=== PATIENT | female | born 2000 | race Caucasian/White ===

== ENCOUNTER 2021-06-23 13:07 | Emergency (ER) | payer MEDICAID ==
--- NOTE | 2021-06-23 13:10 | ERPHSYRPT ---
- History of Present Illness Time Seen by Provider: 06/23/21 13:10 Source: patient Exam Limitations: no limitations Physician History: This is a 20-year-old overweight white female who is right-handed and was having a bowel movement had a vasovagal episode and fell hitting her left forearm. She did not hit her head she does not have neck pain. She does not want any other work-up other than an x-ray of her left forearm. Her wrist does not hurt her hand does not hurt on the left side. Her elbow and more proximally on the left side does not hurt. Occurred: just prior to arrival Injuries/Pain Location: upper extremity (Left forearm) Loss of Consciousness: no loss of consciousness Quality: aching Severity of Pain-Max: moderate Severity of Pain-Current: mild (To moderate) Modifying Factors: Improves With: movement Associated Symptoms (Fall): denies symptoms Allergies/Adverse Reactions: bee venom protein (honey bee) Allergy (Verified 06/23/21 13:14) latex Allergy (Verified 06/23/21 13:14) Home Medications: No Reportable Medications [No Reported Medications] 06/23/21 [History] Travel Risk - International Travel Have you traveled outside of the country in past 3 weeks: No - Coronavirus Screening Are you exhibiting any of the following symptoms?: No Close contact with a COVID-19 positive Pt in past 14-21 Days: No - Review of Systems Constitutional: No Symptoms Eyes: No Symptoms Ears, Nose, & Throat: No Symptoms Respiratory: No Symptoms Cardiac: No Symptoms Abdominal/Gastrointestinal: No Symptoms Genitourinary Symptoms: No Symptoms Musculoskeletal: Fall, Injury (Left forearm) Skin: No Symptoms Neurological: No Symptoms Psychological: No Symptoms Endocrine: No Symptoms Hematologic/Lymphatic: No Symptoms Immunological/Allergic: No Symptoms All Other Systems: Reviewed and Negative - Past Medical History Pertinent Past Medical History: Yes - Nursing Vital Signs Nursing Vital Signs: Initial Vital Signs Temperature 97.7 F 06/23/21 13:16 Pulse Rate 57 L 06/23/21 13:16 Respiratory Rate 18 06/23/21 13:16 Blood Pressure 131/61 06/23/21 13:16 O2 Sat by Pulse Oximetry 100 06/23/21 13:16 Pain Scale Pain Intensity 7 - Radha Coma Score Best Eye Response (Apex): (4) open spontaneously Best Verbal Response (Radha): (5) oriented Best Motor Response (Radha): (6) obeys commands Apex Total: 15 - Physical Exam General Appearance: no apparent distress, alert, anxiety, obese Head Injury: no evidence of injury Eye Exam: PERRL/EOMI, eyes nml inspection ENT Exam: airway nml, nml ext.inspection, hearing grossly normal, No evidence of ENT injury, No dental injury Neck Exam: supple, trachea midline, full range of motion, normal alignment, normal inspection Respiratory/Chest Exam: No chest tenderness, No respiratory distress Gastrointestinal Exam: No tenderness Rectal Exam: not done Back Exam: normal inspection, normal range of motion, No CVA tenderness, No vertebral tenderness Extremity Exam: normal inspection, normal range of motion, tenderness (Soft tissue left forearm), No deformities, No evidence of injury, No motor deficit, No sensory deficit Neurologic Exam: alert, oriented x 3, cooperative, fitness and wellness instructor II-XII nml as tested, normal mood/affect, nml cerebellar function, nml station & gait, sensation nml Skin Exam: normal color, warm, dry SpO2 Interpretation: normal O2 Delivery: Room Air - Course Nursing assessment & vital signs reviewed: Yes Ordered Tests: Active Orders 24 hr Category Date Time Status FOREARM Stat Exams 06/23/21 13:31 Completed - Progress Progress: unchanged, pain not gone completely, re-examined Progress Note: 06/23/21 13:41 X-ray left forearm reveals no acute fracture or dislocation. Counseled pt/family regarding: diagnosis, need for follow-up, rad results - Departure Departure Disposition: Home Clinical Impression: Contusion of left forearm Condition: Stable Critical Care Time: No Additional Instructions: Ice pack to tender area 3 times a day for the next 48 hours. Use Tylenol and ibuprofen for pain control. If your pain persist beyond 48 hours, follow-up at the [facility] orthopedic walk-in clinic. It is open Saturday through Saturday 8 AM to 10 AM.
[2021-06-23 13:20] VITALS: BP 131/61; PULSE 57; O2SAT 100
--- NOTE | 2021-06-23 13:35 | XRAY ---
Indication: Pain following fall. Comparison: None 2 view left forearm demonstrates normal bones, articulation, and soft tissues.
== END 2021-06-23 14:01 | disposition home or self-care (01) ==
LOC: ED 13:07
DX: S50.12XA Contusion of left forearm, initial encounter (principal); W18.11XA Fall from or off toilet without subsequent striking against object, initial encounter
CPT/HCPCS: 73090; 99283

== ENCOUNTER 2024-03-29 20:44 | Emergency (ER) | payer MEDICAID ==
[2024-03-29 21:18] VITALS: TEMP 97.7
--- NOTE | 2024-03-29 21:31 | ERPHSYRPT ---
- History of Present Illness Time Seen by Provider: 03/29/24 21:20 Historian: patient Exam Limitations: no limitations Patient Subjective Stated Complaint: pt states that she has been vomiting and having diarrhea all day Triage Nursing Assessment: pt ambulated into the er; pt is axo x4; c/o vomiting; c/o N/V/D; pt states 6/10 pain to abd; abd soft, obese, tender; hyperactive bowel sounds in all quads; skin PDW; no respiratory distress present; vitals wnl Allergies/Adverse Reactions: bee venom protein (honey bee) Allergy (Verified 03/29/24 21:04) latex Allergy (Verified 03/29/24 21:04) Home Medications: ARIPiprazole [Aripiprazole] 20 mg PO DAILY 03/29/24 [History] Hx Influenza Vaccination/Date Given: Yes Hx Pneumococcal Vaccination/Date Given: No Travel Risk - International Travel Have you traveled outside of the country in past 3 weeks: No - Emerging Infectious Disease Are you exhibiting symptoms associated with any current EIDs: Yes Symptoms: Diarrhea, Vomitting - Past Medical History Pertinent Past Medical History: Yes Neurological History: No Pertinent History ENT History: No Pertinent History Cardiac History: No Pertinent History Respiratory History: No Pertinent History Endocrine Medical History: No Pertinent History Musculoskeletal History: No Pertinent History GI Medical History: No Pertinent History History: No Pertinent History Psycho-Social History: Anxiety, Bipolar, Depression Female Reproductive Disorders: No Pertinent History Other Medical History: PTSD, Borderline personality disorder - Past Surgical History Past Surgical History: Yes Neuro Surgical History: No Pertinent History Cardiac: No Pertinent History Respiratory: No Pertinent History Gastrointestinal: No Pertinent History Genitourinary: No Pertinent History Musculoskeletal: No Pertinent History Female Surgical History: No Pertinent History Other Surgical History: wisdom teeth - Female History Hx Last Menstrual Period: 03/26/24 Hx Now: No - Social History Smoking Status: Light tobacco smoker Exposure to second hand smoke: Yes Drug Use: marijuana Patient Lives Alone: No - Social Determinants of Health Will the patient participate in the screening: Yes Do you worry about a steady place to live?: No Do you have any problems with any of the following?: No known problems In the past 12 months,have you had to go without utilities?: No Transportation Issues: No Has anyone in your support network made you feel unsafe?: No Have you or anyone in your house had to go without enough: No - Nursing Vital Signs Nursing Vital Signs: Initial Vital Signs Temperature 97.7 F 03/29/24 21:06 Pulse Rate 84 03/29/24 21:06 Respiratory Rate 18 03/29/24 21:06 Blood Pressure 118/79 03/29/24 21:06 O2 Sat by Pulse Oximetry 99 03/29/24 21:06 Pain Scale Pain Intensity 3 - Physical Exam SpO2: 99 Ordered Tests: Active Orders 24 hr Category Date Time Status CBC W DIFF Stat Lab 03/29/24 21:35 Completed CMP Stat Lab 03/29/24 21:35 Completed Direct Bilirubin Stat Lab 03/29/24 21:30 Completed HCG QUALITATIVE, URINE Stat Lab 03/29/24 Ordered LIPASE Stat Lab 03/29/24 21:35 Completed UA W/RFX UR CULTURE Stat Lab 03/29/24 21:33 Ordered Medication Summary Discontinued Medications Generic Name Dose Route Start Last Admin Trade Name Freq PRN Reason Stop Dose Admin Sodium Chloride 1,000 mls @ 999 mls/hr 03/29/24 21:32 03/29/24 21:40 Sodium Chloride 0.9% 1000 Ml IV 03/29/24 22:32 999 mls/hr .Q1H1M STA Administration Sodium Chloride Confirm 03/29/24 21:39 Sodium Chloride 0.9% 1000 Ml Administered 03/29/24 21:40 Dose 1,000 mls @ ud .ROUTE .STK-MED ONE Ondansetron HCl 4 mg 03/29/24 21:32 03/29/24 21:40 Ondansetron Hcl 4 Mg/2 Ml Vial IV 03/29/24 21:33 4 mg STAT ONE Administration Ondansetron HCl Confirm 03/29/24 21:39 Ondansetron Hcl 4 Mg/2 Ml Vial Administered 03/29/24 21:40 Dose 4 mg .ROUTE .STK-MED ONE Lab/Rad Data: Laboratory Result Diagrams 03/29/24 21:35 03/29/24 21:35 Laboratory Results 03/29/24 03/29/24 03/29/24 Range/Units 21:54 21:35 21:35 WBC 15.2 H (3.98-10.04) x10^3/uL RBC 5.51 H (3.93-5.22) x10^6/uL Hgb 16.1 H (11.2-15.7) g/dL Hct 46.8 H (34.1-44.9) % MCV 84.9 (79.4-94.8) fL MCH 29.2 (25.6-32.2) pg MCHC 34.4 (32.2-35.5) g/dL RDW 12.2 (11.7-14.4) % Plt Count 298 (182-369) x10^3/uL MPV 11.1 (9.4-12.3) fL Gran % 85.5 H (34.0-71.1) % Immature Gran % (Auto) 0.2 (0.001-0.429) % Nucleat RBC Rel Count 0.0 (0.00-0.2) % Eos # (Auto) 0.03 L (0.04-0.36) x10^3/uL Immature Gran # (Auto) 0.03 (0.001-0.031) x10^3u/L Absolute Lymphs (auto) 1.50 (1.18-3.74) x10^3/uL Absolute Monos (auto) 0.60 (0.24-0.86) x10^3/uL Absolute Nucleated RBC 0.00 (0.00-0.012) x10^3u/L Lymphocytes % 9.9 L (19.3-51.7) % Monocytes % 3.9 L (4.7-12.5) % Eosinophils % 0.2 L (0.7-5.8) % Basophils % 0.3 (0.1-1.2) % Absolute Granulocytes 12.98 H (1.56-6.13) x10^3/uL Basophils # 0.05 (0.01-0.08) x10^3/uL Sodium 139 (135-145) mmol/L Potassium 4.1 (3.5-5.1) mmol/L Chloride 108 H (98-107) mmol/L Carbon Dioxide 21 L (22-30) mmol/L Anion Gap 15.0 (5-15) MEQ/L BUN 12 (7-17) mg/dL Creatinine 0.90 (0.52-1.04) mg/dL Estimated GFR 92.1 ML/MIN Glucose 115 H (74-106) mg/dL Calcium 9.3 (8.4-10.2) mg/dL Total Bilirubin 2.00 H (0.2-1.3) mg/dL Direct Bilirubin (0.0-0.4) mg/dL AST 27 (14-36) U/L ALT 22 (0-35) U/L Alkaline Phosphatase 70 (38-126) U/L Serum Total Protein 8.0 (6.3-8.2) g/dL Albumin 4.7 (3.5-5.0) g/dL Lipase 46 (23-300) U/L Influenza Type A Ag NEGATIVE (NEGATIVE) Influenza Type B Ag NEGATIVE (NEGATIVE) RSV (PCR) NEGATIVE (NEGATIVE) SARS-CoV-2 (PCR) NEGATIVE (NEGATIVE) 03/29/24 Range/Units 21:30 WBC (3.98-10.04) x10^3/uL RBC (3.93-5.22) x10^6/uL Hgb (11.2-15.7) g/dL Hct (34.1-44.9) % MCV (79.4-94.8) fL MCH (25.6-32.2) pg MCHC (32.2-35.5) g/dL RDW (11.7-14.4) % Plt Count (182-369) x10^3/uL MPV (9.4-12.3) fL Gran % (34.0-71.1) % Immature Gran % (Auto) (0.001-0.429) % Nucleat RBC Rel Count (0.00-0.2) % Eos # (Auto) (0.04-0.36) x10^3/uL Immature Gran # (Auto) (0.001-0.031) x10^3u/L Absolute Lymphs (auto) (1.18-3.74) x10^3/uL Absolute Monos (auto) (0.24-0.86) x10^3/uL Absolute Nucleated RBC (0.00-0.012) x10^3u/L Lymphocytes % (19.3-51.7) % Monocytes % (4.7-12.5) % Eosinophils % (0.7-5.8) % Basophils % (0.1-1.2) % Absolute Granulocytes (1.56-6.13) x10^3/uL Basophils # (0.01-0.08) x10^3/uL Sodium (135-145) mmol/L Potassium (3.5-5.1) mmol/L Chloride (98-107) mmol/L Carbon Dioxide (22-30) mmol/L Anion Gap (5-15) MEQ/L BUN (7-17) mg/dL Creatinine (0.52-1.04) mg/dL Estimated GFR ML/MIN Glucose (74-106) mg/dL Calcium (8.4-10.2) mg/dL Total Bilirubin (0.2-1.3) mg/dL Direct Bilirubin 0.3 (0.0-0.4) mg/dL AST (14-36) U/L ALT (0-35) U/L Alkaline Phosphatase (38-126) U/L Serum Total Protein (6.3-8.2) g/dL Albumin (3.5-5.0) g/dL Lipase (23-300) U/L Influenza Type A Ag (NEGATIVE) Influenza Type B Ag (NEGATIVE) RSV (PCR) (NEGATIVE) SARS-CoV-2 (PCR) (NEGATIVE) - Departure Departure Disposition: Home Clinical Impression: Viral gastroenteritis, Nausea & vomiting, Diarrhea, Indirect hyperbilirubin emia, Dehydration Condition: Good Critical Care Time: No Referrals: NIK YAN MD [Primary Care Provider] - Follow up/PCP as directed Instructions: Viral gastroenteritis in adults Prescriptions: Ondansetron [Ondansetron Odt] 8 mg PO TID PRN 7 Days #21 tablet PRN Reason: Nausea/Vomiting
[2024-03-29 21:38] LABS: Absolute Neutrophil Ct (ANC) 12.98 x10^3/uL (1.56-6.13); BASOPHIL % 0.3 % (0.1-1.2); Basophil (Absolute #) 0.05 x10^3/uL (0.01-0.08); Eosinophil % 0.2 % (0.7-5.8); Eosinophil (Absolute #) 0.03 x10^3/uL (0.04-0.36); Hematocrit 46.8 % (34.1-44.9); Hemoglobin 16.1 g/dL (11.2-15.7); IMMATURE GRAN # 0.03 x10^3u/L (0.001-0.031); IMMATURE GRAN % 0.2 % (0.001-0.429); Lymphocytes % 9.9 % (19.3-51.7); Mean Cell Volume 84.9 fL (79.4-94.8); Mean Corpuscular Hemoglobin 29.2 pg (25.6-32.2); Mean Corpuscular Hgb Concent. 34.4 g/dL (32.2-35.5); Mean Platelet Volume 11.1 fL (9.4-12.3); Monocytes % 3.9 % (4.7-12.5); Neutrophil % 85.5 % (34.0-71.1); Platelet Count 298 x10^3/uL (182-369); Red Blood Count 5.51 x10^6/uL (3.93-5.22); Red Cell Distribution Width 12.2 % (11.7-14.4); White Blood Count 15.2 x10^3/uL (3.98-10.04)
[2024-03-29] MEDS ORDERED: Sodium Chloride 0.9% 1000 ML 1,000 ML ONE (21:39)
[2024-03-29] MEDS ORDERED: Zofran 4 MG/2 ML VIAL ONE (21:39)
[2024-03-29] MEDS: Zofran 4 MG/2 ML VIAL IV ONE (21:40)
[2024-03-29] MEDS: Sodium Chloride 0.9% 1000 ML 1,000 ML IV STA (21:40)
[2024-03-29 22:09] LABS: ALBUMIN 4.7 g/dL (3.5-5.0); Calcium 9.3 mg/dL (8.4-10.2); Creatinine 1 0.9 mg/dL (0.52-1.04); EST GLOMERULAR FILTRATION RATE 92.1 ML/MIN; Potassium 4.1 mmol/L (3.5-5.1)
[2024-03-29 22:32] LABS: INFLUENZA A NEGATIVE (NEGATIVE); INFLUENZA B NEGATIVE (NEGATIVE); RESPIRATORY SYNCTIAL VIRUS NEGATIVE (NEGATIVE); SARS-CoV-2 Xpert Express NEGATIVE (NEGATIVE)
[2024-03-29 23:19] VITALS: O2SAT 97
[2024-03-29 23:57] VITALS: BP 123/71; PULSE 94; RESP 18
== END 2024-03-29 23:54 | disposition home or self-care (01) ==
LOC: ED 20:44
DX: A08.4 Viral intestinal infection, unspecified (principal); R11.2 Nausea with vomiting, unspecified; R19.7 Diarrhea, unspecified; E86.0 Dehydration
CPT/HCPCS: 0241U; 36415; 80053; 82248; 83690; 85025; 96374; 99284; J2405

== ENCOUNTER 2024-05-23 13:05 | Observation (INO) | payer OTHER ==
[2024-05-23] MEDS ORDERED: Sodium Chloride 0.9% 1000 ML 1,000 ML ONE (14:32)
[2024-05-23] MEDS ORDERED: TORAdol 30 mg Injection ONE (14:32)
[2024-05-23] MEDS ORDERED: Pepcid 20 MG VIAL IV ONE (14:32)
[2024-05-23] MEDS ORDERED: Zofran 4 MG/2 ML VIAL ONE ×2 (14:32→16:31)
[2024-05-23] MEDS: Sodium Chloride 0.9% 1000 ML 1,000 ML IV STA (14:36)
[2024-05-23] MEDS: TORAdol 30 mg Injection IV ONE (14:37)
[2024-05-23] MEDS: Zofran 4 MG/2 ML VIAL IV ONE ×2 (14:37→16:32)
[2024-05-23] MEDS: Pepcid 20 MG VIAL IV ONE (14:37)
[2024-05-23 14:40] LABS: Absolute Neutrophil Ct (ANC) 2.88 x10^3/uL (1.56-6.13); BASOPHIL % 0.6 % (0.1-1.2); Basophil (Absolute #) 0.03 x10^3/uL (0.01-0.08); Eosinophil % 0.8 % (0.7-5.8); Eosinophil (Absolute #) 0.04 x10^3/uL (0.04-0.36); Hematocrit 43.6 % (34.1-44.9); Hemoglobin 14.8 g/dL (11.2-15.7); IMMATURE GRAN # 0.01 x10^3u/L (0.001-0.031); IMMATURE GRAN % 0.2 % (0.001-0.429); Lymphocyte (Absolute #) 1.24 x10^3/uL (1.18-3.74); Lymphocytes % 25.6 % (19.3-51.7); Mean Cell Volume 85.8 fL (79.4-94.8); Mean Corpuscular Hemoglobin 29.1 pg (25.6-32.2); Mean Corpuscular Hgb Concent. 33.9 g/dL (32.2-35.5); Mean Platelet Volume 10.9 fL (9.4-12.3); Monocyte (Absolute #) 0.64 x10^3/uL (0.24-0.86); Monocytes % 13.2 % (4.7-12.5); Neutrophil % 59.6 % (34.0-71.1); Platelet Count 191 x10^3/uL (182-369); Red Blood Count 5.08 x10^6/uL (3.93-5.22); Red Cell Distribution Width 12.5 % (11.7-14.4); White Blood Count 4.8 x10^3/uL (3.98-10.04)
[2024-05-23 14:53] LABS: ALBUMIN 4.4 g/dL (3.5-5.0); ANION GAP 15.6 MEQ/L (5-15); BILIRUBIN,TOTAL 0.9 mg/dL (0.2-1.3); Creatinine 1 1.11 mg/dL (0.52-1.04); EST GLOMERULAR FILTRATION RATE 71.6 ML/MIN; HCG SERUM TEST NEGATIVE (NEGATIVE); Potassium 3.7 mmol/L (3.5-5.1); Total Protein 7.5 g/dL (6.3-8.2)
[2024-05-23 15:01] LABS: Appearance Cloudy (Clear); Bacteria Moderate /HPF (None Seen); Bilirubin Negative (Negative); Blood Moderate (Negative); Epithelial Cells Moderate /HPF (None Seen); Glucose, Urine Negative (Negative); Hyaline Casts None Seen /LPF (0-2); Ketones 15 (Negative); Leukocyte Esterase Negative (Negative); Nitrite Negative (Negative); Ph 5.5 (4.6-8.0); Protein,Urine Dip 30 (Negative); RBC 0-2 /HPF (0-5); Specific Gravity >=1.030 (1.005-1.030)
[2024-05-23] MEDS ORDERED: MORPHINE SULFATE 4 MG INJ ONE (16:27)
[2024-05-23] MEDS: MORPHINE SULFATE 4 MG INJ IV ONE (16:32)
--- NOTE | 2024-05-23 16:40 | XRAY ---
CLINICAL HISTORY: Upper abdominal pain rule out acute COMPARISON: None TECHNIQUE: Non-contrast CT of the abdomen and pelvis was performed, with the following protocol: axial images, and reconstructed coronal and sagittal images. One of the following dose reduction techniques was utilized for this exam: Automated exposure control, adjustment of the mA and/or kV according to patient size, and use of iterative reconstruction. FINDINGS: Abdomen: Liver: Normal in size, shape, and density. No focal lesions, cysts, or masses were identified. Gallbladder and Biliary System: Special attention was paid to the gallbladder and it shows preserved size and shape, with subtle increased density but no evident hyperdense stones, and the wall cannot be accurately delineated. No peripheral fat stranding nor pericholecystic fluid collection. Pancreas: Pancreatic head, body, and tail are visualized and appear normal in size and density. No pancreatic masses or calcifications were noted. Spleen: Normal in size, shape, and density. No splenic lesions or masses were identified. Kidneys and Adrenal Glands: Both kidneys are normal in size, shape, and position. Cortical thickness is within normal limits. No renal calculi or hydronephrosis. Adrenal glands are unremarkable. Appendix: The appendix is normal in size without reji appendiceal fat stranding, and without an appendicolith. No evidence of appendiceal abscess or perforation. Pelvis: Urinary Bladder: Normal in contour and wall thickness. No intraluminal lesions. Uterus: Normal in size and contour. No masses or abnormal thickening. Ovaries: Not well visualized but no gross abnormalities noted. Vagina: Normal in contour and wall thickness. Cervix: No evidence of mass or abnormal thickening. Peritoneal and Retroperitoneal Structures: No free fluid or abnormal fluid collections were identified within the abdomen or pelvis. No lymphadenopathy was noted. Bowel: The visualized bowel loops are normal in caliber and appearance. No evidence of bowel obstruction or wall thickening. Bones and Soft Tissues: Pelvic bones and soft tissues are unremarkable. No fractures or abnormal masses were identified. IMPRESSION: 1. Subtle increased density of the gallbladder and its wall cannot be accurately delineated. Further evaluation with ultrasound is recommended for better assessment. 2. Otherwise, unremarkable study. Electronically Signed by: Fahad Marin MD. (05/23/2024 16:36:06 EST)
--- NOTE | 2024-05-23 16:48 | ERPHSYRPT ---
- History of Present Illness Time Seen by Provider: 05/23/24 13:42 Historian: patient Exam Limitations: no limitations Patient Subjective Stated Complaint: Pt reports she has had flu like symptoms consisting of congestion/cough the last week. For approx one week she has had upper abdominal pain that worsening last night and has continued to worsen since. Pt also reports nausea/vomiting and diarrhea. Triage Nursing Assessment: Pt alert and oriented x3. Respirations easy/nonlabored. Skin w/p/d. Ambulated to ED cot without difficulty. Abdomen so ft/round/upper quads tender with palpation. Active bowel sounds in all four quads. No active vomiting at this time, emesis bag given. Physician History: 23 years old female morbidly obese presented in the ER with complains of off-and-on upper abdominal pain with nausea. Patient reports she started to have vomiting yesterday and prior to arrival she had [place] which made her pain worse 10 out of 10 in the epigastrium/right upper quadrant with associated nausea and vomiting. No hematemesis. Does report having some loose stool as well. No fever or chills reported. Allergies/Adverse Reactions: bee venom protein (honey bee) Allergy (Verified 05/23/24 13:43) latex Allergy (Verified 05/23/24 13:43) Hx Tetanus, Diphtheria Vaccination/Date Given: Yes Hx Influenza Vaccination/Date Given: No Hx Pneumococcal Vaccination/Date Given: No Travel Risk - International Travel Have you traveled outside of the country in past 3 weeks: No - Emerging Infectious Disease Are you exhibiting symptoms associated with any current EIDs: Yes Symptoms: Abdominal Pain, Diarrhea, Vomitting - Review of Systems Constitutional: No Symptoms Ears, Nose, & Throat: No Symptoms Respiratory: No Symptoms Cardiac: No Symptoms Abdominal/Gastrointestinal: Abdominal Pain, Nausea, Vomiting, Diarrhea Genitourinary Symptoms: No Symptoms Musculoskeletal: No Symptoms Skin: No Symptoms Neurological: No Symptoms Endocrine: No Symptoms Hematologic/Lymphatic: No Symptoms - Past Medical History Pertinent Past Medical History: Yes Neurological History: No Pertinent History ENT History: No Pertinent History Cardiac History: No Pertinent History Respiratory History: No Pertinent History Endocrine Medical History: No Pertinent History Musculoskeletal History: No Pertinent History GI Medical History: No Pertinent History History: No Pertinent History Psycho-Social History: Anxiety, Bipolar, Depression Female Reproductive Disorders: No Pertinent History Other Medical History: PTSD, Borderline personality disorder - Past Surgical History Past Surgical History: Yes Neuro Surgical History: No Pertinent History Cardiac: No Pertinent History Respiratory: No Pertinent History Gastrointestinal: No Pertinent History Genitourinary: No Pertinent History Musculoskeletal: No Pertinent History Female Surgical History: No Pertinent History Other Surgical History: wisdom teeth - Female History Hx Last Menstrual Period: spotting now, last good period 2 months ago Hx Now: (unkn) - Social History Smoking Status: Never smoker Exposure to second hand smoke: Yes Drug Use: marijuana - Social Determinants of Health Will the patient participate in the screening: Declined to provide - Nursing Vital Signs Nursing Vital Signs: Initial Vital Signs Temperature 97.2 F 05/23/24 13:30 Pulse Rate 53 L 05/23/24 13:30 Respiratory Rate 20 05/23/24 13:30 Blood Pressure 119/96 05/23/24 13:30 O2 Sat by Pulse Oximetry 98 05/23/24 13:30 Pain Scale Pain Intensity 7 - Physical Exam General Appearance: no apparent distress, alert Eye Exam: PERRL/EOMI Ears, Nose, Throat Exam: normal ENT inspection Neck Exam: normal inspection, non-tender, supple, full range of motion Respiratory Exam: normal breath sounds, lungs clear Cardiovascular Exam: regular rate/rhythm, normal heart sounds Gastrointestinal/Abdomen Exam: soft, normal bowel sounds, tenderness (Epigastric/right upper quadrant with positive Colon sign) Back Exam: normal inspection, normal range of motion Extremity Exam: normal inspection, normal range of motion Neurologic Exam: alert, oriented x 3, cooperative Skin Exam: normal color SpO2 Interpretation: normal SpO2: 92 O2 Delivery: Room Air Ordered Tests: Active Orders 24 hr Category Date Time Status IV Insertion STAT Care 05/23/24 14:13 Active NPO (ED) STAT Care 05/23/24 14:13 Active ABDOMEN AND PELVIS W/0 CONTRAS [CT] Stat Exams 05/23/24 14:13 Completed CBC W DIFF Stat Lab 05/23/24 14:35 Completed CMP Stat Lab 05/23/24 14:35 Completed CULTURE,URINE Stat Lab 05/23/24 14:18 Received HCG QUALITATIVE, SERUM Stat Lab 05/23/24 14:35 Completed LIPASE Stat Lab 05/23/24 14:35 Completed UA W/RFX UR CULTURE Stat Lab 05/23/24 14:18 Completed Medication Summary Discontinued Medications Generic Name Dose Route Start Last Admin Trade Name Freq PRN Reason Stop Dose Admin Famotidine 20 mg 05/23/24 14:13 05/23/24 14:37 Famotidine 20 Mg/1 Vial IV 05/23/24 14:14 20 mg STAT ONE Administration Famotidine Confirm 05/23/24 14:32 Famotidine 20 Mg/1 Vial Administered 05/23/24 14:33 Dose 20 mg IV .STK-MED ONE Sodium Chloride 1,000 mls @ 999 mls/hr 05/23/24 14:13 05/23/24 16:27 Sodium Chloride 0.9% 1000 Ml IV 05/23/24 15:13 Infused .Q1H1M STA Infusion Sodium Chloride Confirm 05/23/24 14:32 Sodium Chloride 0.9% 1000 Ml Administered 05/23/24 14:33 Dose 1,000 mls @ ud .ROUTE .STK-MED ONE Ketorolac Tromethamine 30 mg 05/23/24 14:13 05/23/24 14:37 Ketorolac Tromethamine 30 Mg/Ml Inj IV 05/23/24 14:14 30 mg STAT ONE Administration Ketorolac Tromethamine Confirm 05/23/24 14:32 Ketorolac Tromethamine 30 Mg/Ml Inj Administered 05/23/24 14:33 Dose 30 mg .ROUTE .STK-MED ONE Morphine Sulfate 4 mg 05/23/24 16:25 05/23/24 16:32 Morphine Sulfate 4 Mg/Ml Injection IV 05/23/24 16:26 4 mg STAT ONE Administration Morphine Sulfate Confirm 05/23/24 16:27 Morphine Sulfate 4 Mg/Ml Injection Administered 05/23/24 16:28 Dose 4 mg .ROUTE .STK-MED ONE Ondansetron HCl 4 mg 05/23/24 14:13 05/23/24 14:37 Ondansetron Hcl 4 Mg/2 Ml Vial IV 05/23/24 14:14 4 mg STAT ONE Administration Ondansetron HCl Confirm 05/23/24 14:32 Ondansetron Hcl 4 Mg/2 Ml Vial Administered 05/23/24 14:33 Dose 4 mg .ROUTE .STK-MED ONE Ondansetron HCl 4 mg 05/23/24 16:29 05/23/24 16:32 Ondansetron Hcl 4 Mg/2 Ml Vial IV 05/23/24 16:30 4 mg STAT ONE Administration Ondansetron HCl Confirm 05/23/24 16:31 Ondansetron Hcl 4 Mg/2 Ml Vial Administered 05/23/24 16:32 Dose 4 mg .ROUTE .STK-MED ONE Lab/Rad Data: Laboratory Result Diagrams 05/23/24 14:35 05/23/24 14:35 Laboratory Results 05/23/24 05/23/24 05/23/24 Range/Units 14:35 14:35 14:35 WBC 4.8 (3.98-10.04) x10^3/uL RBC 5.08 (3.93-5.22) x10^6/uL Hgb 14.8 (11.2-15.7) g/dL Hct 43.6 (34.1-44.9) % MCV 85.8 (79.4-94.8) fL MCH 29.1 (25.6-32.2) pg MCHC 33.9 (32.2-35.5) g/dL RDW 12.5 (11.7-14.4) % Plt Count 191 (182-369) x10^3/uL MPV 10.9 (9.4-12.3) fL Gran % 59.6 (34.0-71.1) % Immature Gran % (Auto) 0.2 (0.001-0.429) % Nucleat RBC Rel Count 0.0 (0.00-0.2) % Eos # (Auto) 0.04 (0.04-0.36) x10^3/uL Immature Gran # (Auto) 0.01 (0.001-0.031) x10^3u/L Absolute Lymphs (auto) 1.24 (1.18-3.74) x10^3/uL Absolute Monos (auto) 0.64 (0.24-0.86) x10^3/uL Absolute Nucleated RBC 0.00 (0.00-0.012) x10^3u/L Lymphocytes % 25.6 (19.3-51.7) % Monocytes % 13.2 H (4.7-12.5) % Eosinophils % 0.8 (0.7-5.8) % Basophils % 0.6 (0.1-1.2) % Absolute Granulocytes 2.88 (1.56-6.13) x10^3/uL Basophils # 0.03 (0.01-0.08) x10^3/uL Sodium 138 (135-145) mmol/L Potassium 3.7 (3.5-5.1) mmol/L Chloride 107 (98-107) mmol/L Carbon Dioxide 18 L (22-30) mmol/L Anion Gap 15.6 H (5-15) MEQ/L BUN 9 (7-17) mg/dL Creatinine 1.11 H (0.52-1.04) mg/dL Estimated GFR 71.6 ML/MIN Glucose 82 (74-106) mg/dL Calcium 9.0 (8.4-10.2) mg/dL Total Bilirubin 0.90 (0.2-1.3) mg/dL AST 35 (14-36) U/L ALT 23 (0-35) U/L Alkaline Phosphatase 77 (38-126) U/L Serum Total Protein 7.5 (6.3-8.2) g/dL Albumin 4.4 (3.5-5.0) g/dL Lipase 94 (23-300) U/L Serum HCG, Qual NEGATIVE (NEGATIVE) Urine Color (Yellow) Urine Appearance (Clear) Urine pH (4.6-8.0) Ur Specific [place] (1.005-1.030) Urine Protein (Negative) Urine Glucose (UA) (Negative) mg/dL Urine Ketones (Negative) Urine Blood (Negative) Urine Nitrite (Negative) Urine Bilirubin (Negative) Urine Urobilinogen (0.2) mg/dL Ur Leukocyte Esterase (Negative) U Hyaline Cast (Auto) (0-2) /LPF Urine Microscopic RBC (0-5) /HPF Urine Microscopic WBC (0-5) /HPF Ur Epithelial Cells (None Seen) /HPF Urine Bacteria (None Seen) /HPF Granular Casts (None Seen) /LPF Urine Culture Reflexed (NO) 05/23/24 Range/Units 14:18 WBC (3.98-10.04) x10^3/uL RBC (3.93-5.22) x10^6/uL Hgb (11.2-15.7) g/dL Hct (34.1-44.9) % MCV (79.4-94.8) fL MCH (25.6-32.2) pg MCHC (32.2-35.5) g/dL RDW (11.7-14.4) % Plt Count (182-369) x10^3/uL MPV (9.4-12.3) fL Gran % (34.0-71.1) % Immature Gran % (Auto) (0.001-0.429) % Nucleat RBC Rel Count (0.00-0.2) % Eos # (Auto) (0.04-0.36) x10^3/uL Immature Gran # (Auto) (0.001-0.031) x10^3u/L Absolute Lymphs (auto) (1.18-3.74) x10^3/uL Absolute Monos (auto) (0.24-0.86) x10^3/uL Absolute Nucleated RBC (0.00-0.012) x10^3u/L Lymphocytes % (19.3-51.7) % Monocytes % (4.7-12.5) % Eosinophils % (0.7-5.8) % Basophils % (0.1-1.2) % Absolute Granulocytes (1.56-6.13) x10^3/uL Basophils # (0.01-0.08) x10^3/uL Sodium (135-145) mmol/L Potassium (3.5-5.1) mmol/L Chloride (98-107) mmol/L Carbon Dioxide (22-30) mmol/L Anion Gap (5-15) MEQ/L BUN (7-17) mg/dL Creatinine (0.52-1.04) mg/dL Estimated GFR ML/MIN Glucose (74-106) mg/dL Calcium (8.4-10.2) mg/dL Total Bilirubin (0.2-1.3) mg/dL AST (14-36) U/L ALT (0-35) U/L Alkaline Phosphatase (38-126) U/L Serum Total Protein (6.3-8.2) g/dL Albumin (3.5-5.0) g/dL Lipase (23-300) U/L Serum HCG, Qual (NEGATIVE) Urine Color Dark Yellow A (Yellow) Urine Appearance Cloudy A (Clear) Urine pH 5.5 (4.6-8.0) Ur Specific [place] >=1.030 A (1.005-1.030) Urine Protein 30 (Negative) Urine Glucose (UA) Negative (Negative) mg/dL Urine Ketones 15 A (Negative) Urine Blood Moderate A (Negative) Urine Nitrite Negative (Negative) Urine Bilirubin Negative (Negative) Urine Urobilinogen 1.0 A (0.2) mg/dL Ur Leukocyte Esterase Negative (Negative) U Hyaline Cast (Auto) None Seen (0-2) /LPF Urine Microscopic RBC 0-2 (0-5) /HPF Urine Microscopic WBC 3-5 (0-5) /HPF Ur Epithelial Cells Moderate A (None Seen) /HPF Urine Bacteria Moderate A (None Seen) /HPF Granular Casts 3-5 A (None Seen) /LPF Urine Culture Reflexed YES (NO) - Progress Progress: improved Progress Note: 05/23/24 17:33 23-year-old is evaluated in the ER for upper abdominal pain with nausea vomiting . Patient has positive Colon sign and tenderness in the epigastric area. She is given fluids and symptomatic treatment, feeling better on reevaluation but still have pain and nausea with vomiting while in the ER. Workup showed normal white count, chemistries fairly unremarkable with normal liver enzymes and total bilirubin. Obtained CT abdomen pelvis which showed increased density of gallbladder with findings which could be consistent with acute cholecystitis. I have discussed with Dr. Valentín Delaney with patient's tenderness and symptoms I believe patient having acute cholecystitis and would benefit with cholecystectomy. He does agree with that. Patient is given a dose of Zosyn. Discussed with Dr. Sullivan hospitalist, reviewed history, workup and agreed with admission. Discussed with .: Jay, Other (Dr. Singh Hospitalist) Will see patient in: hospital (observation) Counseled pt/family regarding: lab results, need for follow-up, rad results Medical Desision Making - Independent Historian Additional History obtained from: Spouse - Discussion of managment Care discussed with:: specialist (Dr. Sullivan hospitalist, Dr. Delaney general surgery) Reviewed:: Test results Agreed on:: Treatment plan, place in obs Will see patient: in hospital - Risk of complications The pt has a mod risk of morbidity or mortality based on: Need for prescription drug management, Need for major surgery in otherwise healthy patient - Departure Departure Disposition: Observation Clinical Impression: Acute cholecystitis Condition: Stable Critical Care Time: No Referrals: NIK YAN MD [Primary Care Provider] - Follow up/PCP as directed
[2024-05-23] MEDS ORDERED: PIPERACILLIN/TAZOBACTAM IV ONE ×2 (17:41→20:38)
[2024-05-23] MEDS ORDERED: Sodium Chloride 100ML MINI-BAG PLUS 100 ML IV ONE ×2 (17:42→20:41)
[2024-05-23] MEDS: PIPERACILLIN/TAZOBACTAM 3.375 GM in Sodium Chloride 100ML MINI-BAG PLUS 100 ML IV ONE (17:43)
[2024-05-23] MEDS: Hydromorphone 1 mg/ml Injection IV PRN (19:45)
[2024-05-23 19:49] LABS: INFLUENZA B NEGATIVE (NEGATIVE); RESPIRATORY SYNCTIAL VIRUS NEGATIVE (NEGATIVE); SARS-CoV-2 Xpert Express NEGATIVE (NEGATIVE)
[2024-05-23 20:05] LABS: INFLUENZA A POSITIVE (NEGATIVE)
[2024-05-23] MEDS: PIPERACILLIN/TAZOBACTAM 3.375 GM in Sodium Chloride 100ML MINI-BAG PLUS 100 ML IV SCH (20:42)
[2024-05-23] MEDS: Dextrose 5%-Lr IV Solution 1000 ML 1,000 ML IV SCH (20:42)
[2024-05-23] MEDS: Zofran 4 MG/2 ML VIAL IV PRN (20:42)
--- NOTE | 2024-05-23 20:50 | PCM.HP ---
History of Present Illness - Chief Complaint Chief Complaint: acute cholecystitis Date: 05/23/24 History of Present Illness: Ms. KLEIN is a 23 year old female with a past medical history significant for morbid obesity who presents to the hospital with complaints of abdominal discomfort associated with nausea and diarrhea. She reports that the pain had been persistent across her lower abdomen, rating 10/10. She had a scan done that demonstrated acute cholecystitis, so she has been admitted for antibiotics, pain control and surgical eval. She also tested positive for influenza A. No fever/chills. No chest pain or shortness of breath. No dysuria, hematuria or urgency. - Review of Systems All Other Systems: Reviewed and Negative Medications & Allergies Home Medications: Home Medication List No Reportable Medications [No Reported Medications] 05/23/24 [History Confirmed 05/23/24] Allergies/Adverse Reactions: Allergies Allergy/AdvReac Type Severity Reaction Status Date / Time bee venom protein (honey bee) Allergy Verified 05/23/24 13:43 latex Allergy Verified 05/23/24 13:43 - Past Medical History Past Medical History: Yes Neurological History: No Pertinent History ENT History: No Pertinent History Cardiac History: No Pertinent History Respiratory History: No Pertinent History Endocrine Medical History: No Pertinent History Musculoskelatal History: No Pertinent History GI Medical History: No Pertinent History History: No Pertinent History Pyscho-Social History: Anxiety, Bipolar, Depression Reproductive Disorders: No Pertinent History Comment: PTSD, Borderline personality disorder - Female History Are you now?: No - Past Surgical History Past Surgical History: Yes Neuro Surgical History: No Pertinent History Cardiac History: No Pertinent History Respiratory Surgery: No Pertinent History GI Surgical History: No Pertinent History Genitourinary Surgical Hx: No Pertinent History Musculskeletal Surgical Hx: No Pertinent History Female Surgical History: No Pertinent History Other Surgical History: wisdom teeth - Social History Smoking Status: Current every day smoker Exposure to second hand smoke: Yes Alcohol: None Drug Use: marijuana - Social Determinants of Health Will the patient participate in the screening: Yes Do you worry about a steady place to live?: No Do you have any problems with any of the following?: No known problems In the past 12 months,have you had to go without utilities?: No Have you or anyone in your house had to go without enough: No Transportation Issues: No Has anyone in your support network made you feel unsafe?: No Does the patient want assistance with any of the above?: No - Physical Exam Vital Signs: Vital Signs - 24 hr Temp Pulse Resp BP BP Pulse Ox 05/23/24 20:00 97.7 F 51 L 12 107/73 96 05/23/24 18:35 97.7 F 51 L 12 107/73 96 05/23/24 17:37 92 L 05/23/24 17:00 52 L 16 114/66 99 05/23/24 16:35 120/80 98 05/23/24 16:34 92 L 05/23/24 15:47 118/64 05/23/24 15:31 100 05/23/24 15:13 117/67 97 05/23/24 15:12 99 05/23/24 15:11 100 05/23/24 14:50 97 05/23/24 14:40 96 05/23/24 14:30 95 05/23/24 14:20 97 05/23/24 14:10 56 L 25 H 94 L 05/23/24 14:09 48 L 17 98 05/23/24 13:38 58 L 19 119/96 94 L 05/23/24 13:30 97.2 F 53 L 20 119/96 98 General Appearance: mild distress Neurologic Exam: alert, oriented x 3 Ears, Nose, Throat Exam: dry mucous membranes Neck Exam: supple Respiratory Exam: No respiratory distress Cardiovascular Exam: regular rate/rhythm Gastrointestinal/Abdomen Exam: tenderness, guarding Extremity Exam: No pedal edema, No swelling Skin Exam: normal color, No rash Results - Labs Lab/Micro Results: Lab Results-Last 24 Hours 05/23/24 05/23/24 05/23/24 Range/Units 14:18 14:35 14:35 WBC 4.8 (3.98-10.04) x10^3/uL RBC 5.08 (3.93-5.22) x10^6/uL Hgb 14.8 (11.2-15.7) g/dL Hct 43.6 (34.1-44.9) % MCV 85.8 (79.4-94.8) fL MCH 29.1 (25.6-32.2) pg MCHC 33.9 (32.2-35.5) g/dL RDW 12.5 (11.7-14.4) % Plt Count 191 (182-369) x10^3/uL MPV 10.9 (9.4-12.3) fL Gran % 59.6 (34.0-71.1) % Immature Gran % (Auto) 0.2 (0.001-0.429) % Nucleat RBC Rel Count 0.0 (0.00-0.2) % Eos # (Auto) 0.04 (0.04-0.36) x10^3/uL Immature Gran # (Auto) 0.01 (0.001-0.031) x10^3u/L Absolute Lymphs (auto) 1.24 (1.18-3.74) x10^3/uL Absolute Monos (auto) 0.64 (0.24-0.86) x10^3/uL Absolute Nucleated RBC 0.00 (0.00-0.012) x10^3u/L Lymphocytes % 25.6 (19.3-51.7) % Monocytes % 13.2 H (4.7-12.5) % Eosinophils % 0.8 (0.7-5.8) % Basophils % 0.6 (0.1-1.2) % Absolute Granulocytes 2.88 (1.56-6.13) x10^3/uL Basophils # 0.03 (0.01-0.08) x10^3/uL Sodium 138 (135-145) mmol/L Potassium 3.7 (3.5-5.1) mmol/L Chloride 107 (98-107) mmol/L Carbon Dioxide 18 L (22-30) mmol/L Anion Gap 15.6 H (5-15) MEQ/L BUN 9 (7-17) mg/dL Creatinine 1.11 H (0.52-1.04) mg/dL Estimated GFR 71.6 ML/MIN Glucose 82 (74-106) mg/dL Calcium 9.0 (8.4-10.2) mg/dL Total Bilirubin 0.90 (0.2-1.3) mg/dL AST 35 (14-36) U/L ALT 23 (0-35) U/L Alkaline Phosphatase 77 (38-126) U/L Serum Total Protein 7.5 (6.3-8.2) g/dL Albumin 4.4 (3.5-5.0) g/dL Lipase 94 (23-300) U/L Serum HCG, Qual (NEGATIVE) Urine Color Dark Yellow A (Yellow) Urine Appearance Cloudy A (Clear) Urine pH 5.5 (4.6-8.0) Ur Specific [place] >=1.030 A (1.005-1.030) Urine Protein 30 (Negative) Urine Glucose (UA) Negative (Negative) mg/dL Urine Ketones 15 A (Negative) Urine Blood Moderate A (Negative) Urine Nitrite Negative (Negative) Urine Bilirubin Negative (Negative) Urine Urobilinogen 1.0 A (0.2) mg/dL Ur Leukocyte Esterase Negative (Negative) U Hyaline Cast (Auto) None Seen (0-2) /LPF Urine Microscopic RBC 0-2 (0-5) /HPF Urine Microscopic WBC 3-5 (0-5) /HPF Ur Epithelial Cells Moderate A (None Seen) /HPF Urine Bacteria Moderate A (None Seen) /HPF Granular Casts 3-5 A (None Seen) /LPF Urine Culture Reflexed YES (NO) Influenza Type A Ag (NEGATIVE) Influenza Type B Ag (NEGATIVE) RSV (PCR) (NEGATIVE) SARS-CoV-2 (PCR) (NEGATIVE) 05/23/24 05/23/24 Range/Units 14:35 19:05 WBC (3.98-10.04) x10^3/uL RBC (3.93-5.22) x10^6/uL Hgb (11.2-15.7) g/dL Hct (34.1-44.9) % MCV (79.4-94.8) fL MCH (25.6-32.2) pg MCHC (32.2-35.5) g/dL RDW (11.7-14.4) % Plt Count (182-369) x10^3/uL MPV (9.4-12.3) fL Gran % (34.0-71.1) % Immature Gran % (Auto) (0.001-0.429) % Nucleat RBC Rel Count (0.00-0.2) % Eos # (Auto) (0.04-0.36) x10^3/uL Immature Gran # (Auto) (0.001-0.031) x10^3u/L Absolute Lymphs (auto) (1.18-3.74) x10^3/uL Absolute Monos (auto) (0.24-0.86) x10^3/uL Absolute Nucleated RBC (0.00-0.012) x10^3u/L Lymphocytes % (19.3-51.7) % Monocytes % (4.7-12.5) % Eosinophils % (0.7-5.8) % Basophils % (0.1-1.2) % Absolute Granulocytes (1.56-6.13) x10^3/uL Basophils # (0.01-0.08) x10^3/uL Sodium (135-145) mmol/L Potassium (3.5-5.1) mmol/L Chloride (98-107) mmol/L Carbon Dioxide (22-30) mmol/L Anion Gap (5-15) MEQ/L BUN (7-17) mg/dL Creatinine (0.52-1.04) mg/dL Estimated GFR ML/MIN Glucose (74-106) mg/dL Calcium (8.4-10.2) mg/dL Total Bilirubin (0.2-1.3) mg/dL AST (14-36) U/L ALT (0-35) U/L Alkaline Phosphatase (38-126) U/L Serum Total Protein (6.3-8.2) g/dL Albumin (3.5-5.0) g/dL Lipase (23-300) U/L Serum HCG, Qual NEGATIVE (NEGATIVE) Urine Color (Yellow) Urine Appearance (Clear) Urine pH (4.6-8.0) Ur Specific [place] (1.005-1.030) Urine Protein (Negative) Urine Glucose (UA) (Negative) mg/dL Urine Ketones (Negative) Urine Blood (Negative) Urine Nitrite (Negative) Urine Bilirubin (Negative) Urine Urobilinogen (0.2) mg/dL Ur Leukocyte Esterase (Negative) U Hyaline Cast (Auto) (0-2) /LPF Urine Microscopic RBC (0-5) /HPF Urine Microscopic WBC (0-5) /HPF Ur Epithelial Cells (None Seen) /HPF Urine Bacteria (None Seen) /HPF Granular Casts (None Seen) /LPF Urine Culture Reflexed (NO) Influenza Type A Ag POSITIVE A (NEGATIVE) Influenza Type B Ag NEGATIVE (NEGATIVE) RSV (PCR) NEGATIVE (NEGATIVE) SARS-CoV-2 (PCR) NEGATIVE (NEGATIVE) - Radiology Impressions Radiology Exams & Impressions: Radiology Procedures Category Date Time Status ABDOMEN AND PELVIS W/0 CONTRAS [CT] Stat Exams 05/23/24 14:13 Completed Assessment/Plan (1) Acute cholecystitis Current Visit: Yes Status: Acute Assessment & Plan: Patient with significant abdominal pain and likely cholecystitis on CT abd 1. Admit to hospital 2. NPO, surgery consult 3. Pain control 4. Anti-emetics 5. DVT/GI prophylaxis 6. Empiric antibiotics Code(s): K81.0 - ACUTE CHOLECYSTITIS (2) Acute kidney injury Current Visit: Yes Status: Acute Assessment & Plan: Likely from prerenal azotemia with concentrated urine and ketones 1. IVFs 2. Check urine lytes, urine creatinine 3. Follow I/Os 4. Watch electrolytes, creatinine closely after contrast Code(s): N17.9 - ACUTE KIDNEY FAILURE, UNSPECIFIED (3) Acute metabolic acidosis Current Visit: Yes Status: Acute Assessment & Plan: Likely from ketoacidosis and lactic acidosis 1. IVFs 2. Monitor ABG prn Code(s): E87.21 - ACUTE METABOLIC ACIDOSIS Telemedicine Encounter - Telemedicine Encounter Telemedicine Encounter: "The entirety of this encounter was performed via Telemedicine" This visit was performed using real-time audio and video connection between my location and thepatients locationwith the assistance of a surrogateat the patients location. Written or verbal consent was obtained from the patient/guardian to perform this visit [facility] technology. Any patient questions regarding the telemedicine interaction were answered.
[2024-05-23] MEDS: Compazine 10 MG/2 ML IV PRN (21:49)
[2024-05-24] MEDS ORDERED: PIPERACILLIN/TAZOBACTAM IV ONE (04:36)
[2024-05-24] MEDS ORDERED: Sodium Chloride 100ML MINI-BAG PLUS 100 ML IV ONE (04:37)
--- NOTE | 2024-05-24 05:05 | PCM.NOTE ---
Date and Time: 05/24/24 0502 Subjective Assessment: Ms Schneider is a 23 year old female with a pmhx of bipolar disorder, anxiety, and depression who presented to ED 05/23/24 with complaints of a week history of RUQ pain with associated nausea and vomiting. Patient also endorsed congestion and cough. Upon arrival to ED patient with bradycardia otherwise stable vitals. CT of the abdomen/pelvis demonstrated subtle increased density of the gallbladder and its wall cannot be accurately delineated. Initial lab findings remarkable for mildly elevated creat. Surgery consulted plan for surgical intervention. Patient received Zosyn and IVF bolus in ED as well as pain control and nausea meds. Admit for acute cholecystitis. 05/24/24: Patient endorsing nausea, vomiting, cough, and sore throat. Strep negative. Plan for Lap nicole today with Dr. Oksana Delaney. Patient on RA. Labs and vitals stable. - Review of Systems Constitutional: No Symptoms Eyes: No Symptoms Ears, Nose, & Throat: Nose Congestion, Throat Pain, Painful Swallowing Respiratory: Cough, Short Of Breath Cardiac: No Symptoms Abdominal/Gastrointestinal: Abdominal Pain, Nausea, Vomiting Genitourinary Symptoms: No Symptoms Musculoskeletal: No Symptoms Skin: No Symptoms Neurological: No Symptoms Psychological: No Symptoms Endocrine: No Symptoms Hematologic/Lymphatic: No Symptoms Immunological/Allergic: No Symptoms Objective Exam General Appearance: no apparent distress Neurologic Exam: alert, oriented x 3, cooperative Skin Exam: normal color Eye Exam: PERRL Ears, Nose, Throat Exam: tonsillar exudate Neck Exam: normal inspection Respiratory Exam: wheezing Cardiovascular Exam: regular rate/rhythm, normal heart sounds Gastrointestinal/Abdomen Exam: soft, normal bowel sounds, tenderness (RUQ) Extremity Exam: normal inspection Back Exam: normal inspection Objective Data Vital Signs: Vital Signs - 24 hr Temp Pulse Resp BP BP Pulse Ox 05/24/24 03:46 97.7 F 55 L 17 98/44 98 05/24/24 00:00 97.7 F 55 L 17 98/44 98 05/23/24 20:00 97.7 F 51 L 12 107/73 96 05/23/24 18:35 97.7 F 51 L 12 107/73 96 05/23/24 17:37 92 L 05/23/24 17:00 52 L 16 114/66 99 05/23/24 16:35 120/80 98 05/23/24 16:34 92 L 05/23/24 15:47 118/64 05/23/24 15:31 100 05/23/24 15:13 117/67 97 05/23/24 15:12 99 05/23/24 15:11 100 05/23/24 14:50 97 05/23/24 14:40 96 05/23/24 14:30 95 05/23/24 14:20 97 05/23/24 14:10 56 L 25 H 94 L 05/23/24 14:09 48 L 17 98 05/23/24 13:38 58 L 19 119/96 94 L 05/23/24 13:30 97.2 F 53 L 20 119/96 98 Pain Assessment - Last Documented Pain Intensity 3 Pain Scale Used 0-10 Pain Scale Intake and Output: Intake & Output 05/21/24 05/22/24 05/23/24 05/24/24 11:59 11:59 11:59 11:59 Weight 131.4 kg Lab Results: Lab Results-Last 24 Hours 05/23/24 05/23/24 05/23/24 Range/Units 14:18 14:35 14:35 WBC 4.8 (3.98-10.04) x10^3/uL RBC 5.08 (3.93-5.22) x10^6/uL Hgb 14.8 (11.2-15.7) g/dL Hct 43.6 (34.1-44.9) % MCV 85.8 (79.4-94.8) fL MCH 29.1 (25.6-32.2) pg MCHC 33.9 (32.2-35.5) g/dL RDW 12.5 (11.7-14.4) % Plt Count 191 (182-369) x10^3/uL MPV 10.9 (9.4-12.3) fL Gran % 59.6 (34.0-71.1) % Immature Gran % (Auto) 0.2 (0.001-0.429) % Nucleat RBC Rel Count 0.0 (0.00-0.2) % Eos # (Auto) 0.04 (0.04-0.36) x10^3/uL Immature Gran # (Auto) 0.01 (0.001-0.031) x10^3u/L Absolute Lymphs (auto) 1.24 (1.18-3.74) x10^3/uL Absolute Monos (auto) 0.64 (0.24-0.86) x10^3/uL Absolute Nucleated RBC 0.00 (0.00-0.012) x10^3u/L Lymphocytes % 25.6 (19.3-51.7) % Monocytes % 13.2 H (4.7-12.5) % Eosinophils % 0.8 (0.7-5.8) % Basophils % 0.6 (0.1-1.2) % Absolute Granulocytes 2.88 (1.56-6.13) x10^3/uL Basophils # 0.03 (0.01-0.08) x10^3/uL Sodium 138 (135-145) mmol/L Potassium 3.7 (3.5-5.1) mmol/L Chloride 107 (98-107) mmol/L Carbon Dioxide 18 L (22-30) mmol/L Anion Gap 15.6 H (5-15) MEQ/L BUN 9 (7-17) mg/dL Creatinine 1.11 H (0.52-1.04) mg/dL Estimated GFR 71.6 ML/MIN Glucose 82 (74-106) mg/dL Calcium 9.0 (8.4-10.2) mg/dL Total Bilirubin 0.90 (0.2-1.3) mg/dL AST 35 (14-36) U/L ALT 23 (0-35) U/L Alkaline Phosphatase 77 (38-126) U/L Serum Total Protein 7.5 (6.3-8.2) g/dL Albumin 4.4 (3.5-5.0) g/dL Lipase 94 (23-300) U/L Serum HCG, Qual (NEGATIVE) Urine Color Dark Yellow A (Yellow) Urine Appearance Cloudy A (Clear) Urine pH 5.5 (4.6-8.0) Ur Specific [place] >=1.030 A (1.005-1.030) Urine Protein 30 (Negative) Urine Glucose (UA) Negative (Negative) mg/dL Urine Ketones 15 A (Negative) Urine Blood Moderate A (Negative) Urine Nitrite Negative (Negative) Urine Bilirubin Negative (Negative) Urine Urobilinogen 1.0 A (0.2) mg/dL Ur Leukocyte Esterase Negative (Negative) U Hyaline Cast (Auto) None Seen (0-2) /LPF Urine Microscopic RBC 0-2 (0-5) /HPF Urine Microscopic WBC 3-5 (0-5) /HPF Ur Epithelial Cells Moderate A (None Seen) /HPF Urine Bacteria Moderate A (None Seen) /HPF Granular Casts 3-5 A (None Seen) /LPF Urine Culture Reflexed YES (NO) Influenza Type A Ag (NEGATIVE) Influenza Type B Ag (NEGATIVE) RSV (PCR) (NEGATIVE) SARS-CoV-2 (PCR) (NEGATIVE) 05/23/24 05/23/24 Range/Units 14:35 19:05 WBC (3.98-10.04) x10^3/uL RBC (3.93-5.22) x10^6/uL Hgb (11.2-15.7) g/dL Hct (34.1-44.9) % MCV (79.4-94.8) fL MCH (25.6-32.2) pg MCHC (32.2-35.5) g/dL RDW (11.7-14.4) % Plt Count (182-369) x10^3/uL MPV (9.4-12.3) fL Gran % (34.0-71.1) % Immature Gran % (Auto) (0.001-0.429) % Nucleat RBC Rel Count (0.00-0.2) % Eos # (Auto) (0.04-0.36) x10^3/uL Immature Gran # (Auto) (0.001-0.031) x10^3u/L Absolute Lymphs (auto) (1.18-3.74) x10^3/uL Absolute Monos (auto) (0.24-0.86) x10^3/uL Absolute Nucleated RBC (0.00-0.012) x10^3u/L Lymphocytes % (19.3-51.7) % Monocytes % (4.7-12.5) % Eosinophils % (0.7-5.8) % Basophils % (0.1-1.2) % Absolute Granulocytes (1.56-6.13) x10^3/uL Basophils # (0.01-0.08) x10^3/uL Sodium (135-145) mmol/L Potassium (3.5-5.1) mmol/L Chloride (98-107) mmol/L Carbon Dioxide (22-30) mmol/L Anion Gap (5-15) MEQ/L BUN (7-17) mg/dL Creatinine (0.52-1.04) mg/dL Estimated GFR ML/MIN Glucose (74-106) mg/dL Calcium (8.4-10.2) mg/dL Total Bilirubin (0.2-1.3) mg/dL AST (14-36) U/L ALT (0-35) U/L Alkaline Phosphatase (38-126) U/L Serum Total Protein (6.3-8.2) g/dL Albumin (3.5-5.0) g/dL Lipase (23-300) U/L Serum HCG, Qual NEGATIVE (NEGATIVE) Urine Color (Yellow) Urine Appearance (Clear) Urine pH (4.6-8.0) Ur Specific [place] (1.005-1.030) Urine Protein (Negative) Urine Glucose (UA) (Negative) mg/dL Urine Ketones (Negative) Urine Blood (Negative) Urine Nitrite (Negative) Urine Bilirubin (Negative) Urine Urobilinogen (0.2) mg/dL Ur Leukocyte Esterase (Negative) U Hyaline Cast (Auto) (0-2) /LPF Urine Microscopic RBC (0-5) /HPF Urine Microscopic WBC (0-5) /HPF Ur Epithelial Cells (None Seen) /HPF Urine Bacteria (None Seen) /HPF Granular Casts (None Seen) /LPF Urine Culture Reflexed (NO) Influenza Type A Ag POSITIVE A (NEGATIVE) Influenza Type B Ag NEGATIVE (NEGATIVE) RSV (PCR) NEGATIVE (NEGATIVE) SARS-CoV-2 (PCR) NEGATIVE (NEGATIVE) Radiology Exams: Radiology Procedures Category Date Time Status ABDOMEN AND PELVIS W/0 CONTRAS [CT] Stat Exams 05/23/24 14:13 Completed Assessment/Plan (1) Acute cholecystitis Current Visit: Yes Status: Acute Assessment & Plan: -CT abdomen/pelvis reviewed demonstrated subtle increased density of the gallbladder and its wall cannot be accurately delineated -US not available on the weekend -Dr. Oksana Delaney consulted - plan for surgical intervention -Zosyn started in ED, will continue -CMP/ CBC reviewed Code(s): K81.0 - ACUTE CHOLECYSTITIS (2) Nausea & vomiting Current Visit: No Status: Acute Assessment & Plan: -Secondary to cholecystitis -prn zofran -see plan above Code(s): R11.2 - NAUSEA WITH VOMITING, UNSPECIFIED (3) Acute metabolic acidosis Current Visit: Yes Status: Acute Assessment & Plan: -2/2 to GI losses -Continue IVF -trend -CO2 reviewed and improving 20>18 Code(s): E87.21 - ACUTE METABOLIC ACIDOSIS (4) Sore throat Current Visit: Yes Status: Acute Assessment & Plan: -Strep negative -chloraseptic spray Code(s): J02.9 - ACUTE PHARYNGITIS, UNSPECIFIED (5) Influenza A Current Visit: Yes Status: Acute Assessment & Plan: -Tamiflu -supportive care -CXR -CMP/CBC reviewed VTE: SCD Dispo: 1-2 days Code status: full code Code(s): J10.1 - FLU DUE TO OTH IDENT INFLUENZA VIRUS W OTH RESP MANIFEST
[2024-05-24 08:00] LABS: Hematocrit 42.5 % (34.1-44.9); Hemoglobin 14.3 g/dL (11.2-15.7); Mean Cell Volume 85.9 fL (79.4-94.8); Mean Corpuscular Hemoglobin 28.9 pg (25.6-32.2); Mean Corpuscular Hgb Concent. 33.6 g/dL (32.2-35.5); Mean Platelet Volume 11.5 fL (9.4-12.3); Platelet Count 182 x10^3/uL (182-369); Red Blood Count 4.95 x10^6/uL (3.93-5.22); Red Cell Distribution Width 12.9 % (11.7-14.4); White Blood Count 4.9 x10^3/uL (3.98-10.04)
[2024-05-24 08:14] LABS: ANION GAP 16.5 MEQ/L (5-15); BILIRUBIN,TOTAL 0.8 mg/dL (0.2-1.3); Calcium 8.4 mg/dL (8.4-10.2); Creatinine 1 0.84 mg/dL (0.52-1.04); EST GLOMERULAR FILTRATION RATE 100.1 ML/MIN; Potassium 3.6 mmol/L (3.5-5.1)
[2024-05-24] MEDS: MORPHINE SULFATE 2 MG INJ IV PRN (08:50)
--- NOTE | 2024-05-24 10:17 | PCM.CONS ---
History of Present Illness - Reason for Consult Chief Complaint: acute cholecystitis Requesting Provider: BECKY CEE MD Consulting Provider: MONIQUE BONDS MD History of Present Illness: is a 23 year old female. 23yo morbidly obese no other medical problems. states around a week ago started to just not feel right in her belly. no real pain. 05/23 with abd pain, n/v, some diarrhea. no blood. no complaints otherwise. no sick contacts. to ed workup with gallstone, guido sign concern for acute nicole. pain continued overnight. no emesis/diarrheqa here. " History of Present Illness - Chief Complaint Chief Complaint: acute cholecystitis Date: 05/23/24 History of Present Illness: Ms. KLEIN is a 23 year old female with a past medical history significant for morbid obesity who presents to the hospital with complaints of abdominal discomfort associated with nausea and diarrhea. She reports that the pain had been persistent across her lower abdomen, rating 10/10. She had a scan done that demonstrated acute cholecystitis, so she has been admitted for antibiotics, pain control and surgical eval. She also tested positive for influenza A. No fever/chills. No chest pain or shortness of breath. No dysuria, hematuria or urgency. - Review of Systems All Other Systems: Reviewed and Negative Medications & Allergies Home Medications: Home Medication List No Reportable Medications [No Reported Medications] 05/23/24 [History Confirmed 05/23/24] Allergies/Adverse Reactions: Allergies Allergy/AdvReac Type Severity Reaction Status Date / Time bee venom protein (honey bee) Allergy Verified 05/23/24 13:43 latex Allergy Verified 05/23/24 13:43 - Past Medical History Past Medical History: Yes Neurological History: No Pertinent History ENT History: No Pertinent History Cardiac History: No Pertinent History Respiratory History: No Pertinent History Endocrine Medical History: No Pertinent History Musculoskelatal History: No Pertinent History GI Medical History: No Pertinent History History: No Pertinent History Pyscho-Social History: Anxiety, Bipolar, Depression Reproductive Disorders: No Pertinent History Comment: PTSD, Borderline personality disorder - Female History Are you now?: No - Past Surgical History Past Surgical History: Yes Neuro Surgical History: No Pertinent History Cardiac History: No Pertinent History Respiratory Surgery: No Pertinent History GI Surgical History: No Pertinent History Genitourinary Surgical Hx: No Pertinent History Musculskeletal Surgical Hx: No Pertinent History Female Surgical History: No Pertinent History Other Surgical History: wisdom teeth - Social History Smoking Status: Current every day smoker Exposure to second hand smoke: Yes Alcohol: None Drug Use: marijuana - Social Determinants of Health Will the patient participate in the screening: Yes Do you worry about a steady place to live?: No Do you have any problems with any of the following?: No known problems In the past 12 months,have you had to go without utilities?: No Have you or anyone in your house had to go without enough: No Transportation Issues: No Has anyone in your support network made you feel unsafe?: No Does the patient want assistance with any of the above?: No" Medications & Allergies Home Medications: Home Medication List No Reportable Medications [No Reported Medications] 05/23/24 [History Confirmed 05/23/24] Allergies/Adverse Reactions: Allergies Allergy/AdvReac Type Severity Reaction Status Date / Time bee venom protein (honey bee) Allergy Verified 05/23/24 13:43 latex Allergy Verified 05/23/24 13:43 - Past Medical History Past Medical History: Yes Neurological History: No Pertinent History ENT History: No Pertinent History Cardiac History: No Pertinent History Respiratory History: No Pertinent History Endocrine Medical History: No Pertinent History Musculoskelatal History: No Pertinent History GI Medical History: No Pertinent History History: No Pertinent History Pyscho-Social History: Anxiety, Bipolar, Depression Reproductive Disorders: No Pertinent History Comment: PTSD, Borderline personality disorder - Female History Are you now?: No - Past Surgical History Past Surgical History: Yes Neuro Surgical History: No Pertinent History Cardiac History: No Pertinent History Respiratory Surgery: No Pertinent History GI Surgical History: No Pertinent History Genitourinary Surgical Hx: No Pertinent History Musculskeletal Surgical Hx: No Pertinent History Female Surgical History: No Pertinent History Other Surgical History: wisdom teeth - Social History Smoking Status: Current every day smoker Exposure to second hand smoke: Yes Alcohol: None Drug Use: marijuana - Social Determinants of Health Will the patient participate in the screening: Yes Do you worry about a steady place to live?: No Do you have any problems with any of the following?: No known problems In the past 12 months,have you had to go without utilities?: No Have you or anyone in your house had to go without enough: No Transportation Issues: No Has anyone in your support network made you feel unsafe?: No Does the patient want assistance with any of the above?: No - Physical Exam Vital Signs: Vital Signs - 24 hr Temp Pulse Resp BP BP Pulse Ox 05/24/24 08:00 97.7 F 52 L 18 106/55 99 05/24/24 03:46 97.7 F 55 L 17 98/44 98 05/24/24 00:00 97.7 F 55 L 17 98/44 98 05/23/24 20:00 97.7 F 51 L 12 107/73 96 05/23/24 18:35 97.7 F 51 L 12 107/73 96 05/23/24 17:37 92 L 05/23/24 17:00 52 L 16 114/66 99 05/23/24 16:35 120/80 98 05/23/24 16:34 92 L 05/23/24 15:47 118/64 05/23/24 15:31 100 05/23/24 15:13 117/67 97 05/23/24 15:12 99 05/23/24 15:11 100 05/23/24 14:50 97 05/23/24 14:40 96 05/23/24 14:30 95 05/23/24 14:20 97 05/23/24 14:10 56 L 25 H 94 L 05/23/24 14:09 48 L 17 98 05/23/24 13:38 58 L 19 119/96 94 L 05/23/24 13:30 97.2 F 53 L 20 119/96 98 Additional Findings: 05/24/24 10:16 nad no scleral icterus neck symmmetric nonlabore dreps rrr obese soft, ttp ruq + guido. no edema Results - Labs Lab/Micro Results: Lab Results-Last 24 Hours 05/23/24 05/23/24 05/23/24 Range/Units 14:18 14:35 14:35 WBC 4.8 (3.98-10.04) x10^3/uL RBC 5.08 (3.93-5.22) x10^6/uL Hgb 14.8 (11.2-15.7) g/dL Hct 43.6 (34.1-44.9) % MCV 85.8 (79.4-94.8) fL MCH 29.1 (25.6-32.2) pg MCHC 33.9 (32.2-35.5) g/dL RDW 12.5 (11.7-14.4) % Plt Count 191 (182-369) x10^3/uL MPV 10.9 (9.4-12.3) fL Gran % 59.6 (34.0-71.1) % Immature Gran % (Auto) 0.2 (0.001-0.429) % Nucleat RBC Rel Count 0.0 (0.00-0.2) % Eos # (Auto) 0.04 (0.04-0.36) x10^3/uL Immature Gran # (Auto) 0.01 (0.001-0.031) x10^3u/L Absolute Lymphs (auto) 1.24 (1.18-3.74) x10^3/uL Absolute Monos (auto) 0.64 (0.24-0.86) x10^3/uL Absolute Nucleated RBC 0.00 (0.00-0.012) x10^3u/L Lymphocytes % 25.6 (19.3-51.7) % Monocytes % 13.2 H (4.7-12.5) % Eosinophils % 0.8 (0.7-5.8) % Basophils % 0.6 (0.1-1.2) % Absolute Granulocytes 2.88 (1.56-6.13) x10^3/uL Basophils # 0.03 (0.01-0.08) x10^3/uL Sodium 138 (135-145) mmol/L Potassium 3.7 (3.5-5.1) mmol/L Chloride 107 (98-107) mmol/L Carbon Dioxide 18 L (22-30) mmol/L Anion Gap 15.6 H (5-15) MEQ/L BUN 9 (7-17) mg/dL Creatinine 1.11 H (0.52-1.04) mg/dL Estimated GFR 71.6 ML/MIN Glucose 82 (74-106) mg/dL Calcium 9.0 (8.4-10.2) mg/dL Total Bilirubin 0.90 (0.2-1.3) mg/dL AST 35 (14-36) U/L ALT 23 (0-35) U/L Alkaline Phosphatase 77 (38-126) U/L Serum Total Protein 7.5 (6.3-8.2) g/dL Albumin 4.4 (3.5-5.0) g/dL Lipase 94 (23-300) U/L Serum HCG, Qual (NEGATIVE) Urine Color Dark Yellow A (Yellow) Urine Appearance Cloudy A (Clear) Urine pH 5.5 (4.6-8.0) Ur Specific [place] >=1.030 A (1.005-1.030) Urine Protein 30 (Negative) Urine Glucose (UA) Negative (Negative) mg/dL Urine Ketones 15 A (Negative) Urine Blood Moderate A (Negative) Urine Nitrite Negative (Negative) Urine Bilirubin Negative (Negative) Urine Urobilinogen 1.0 A (0.2) mg/dL Ur Leukocyte Esterase Negative (Negative) U Hyaline Cast (Auto) None Seen (0-2) /LPF Urine Microscopic RBC 0-2 (0-5) /HPF Urine Microscopic WBC 3-5 (0-5) /HPF Ur Epithelial Cells Moderate A (None Seen) /HPF Urine Bacteria Moderate A (None Seen) /HPF Granular Casts 3-5 A (None Seen) /LPF Urine Culture Reflexed YES (NO) Influenza Type A Ag (NEGATIVE) Influenza Type B Ag (NEGATIVE) RSV (PCR) (NEGATIVE) SARS-CoV-2 (PCR) (NEGATIVE) Group A Strep Antibody (NEGATIVE) 05/23/24 05/23/24 05/24/24 Range/Units 14:35 19:05 07:35 WBC 4.9 (3.98-10.04) x10^3/uL RBC 4.95 (3.93-5.22) x10^6/uL Hgb 14.3 (11.2-15.7) g/dL Hct 42.5 (34.1-44.9) % MCV 85.9 (79.4-94.8) fL MCH 28.9 (25.6-32.2) pg MCHC 33.6 (32.2-35.5) g/dL RDW 12.9 (11.7-14.4) % Plt Count 182 (182-369) x10^3/uL MPV 11.5 (9.4-12.3) fL Gran % (34.0-71.1) % Immature Gran % (Auto) (0.001-0.429) % Nucleat RBC Rel Count (0.00-0.2) % Eos # (Auto) (0.04-0.36) x10^3/uL Immature Gran # (Auto) (0.001-0.031) x10^3u/L Absolute Lymphs (auto) (1.18-3.74) x10^3/uL Absolute Monos (auto) (0.24-0.86) x10^3/uL Absolute Nucleated RBC (0.00-0.012) x10^3u/L Lymphocytes % (19.3-51.7) % Monocytes % (4.7-12.5) % Eosinophils % (0.7-5.8) % Basophils % (0.1-1.2) % Absolute Granulocytes (1.56-6.13) x10^3/uL Basophils # (0.01-0.08) x10^3/uL Sodium (135-145) mmol/L Potassium (3.5-5.1) mmol/L Chloride (98-107) mmol/L Carbon Dioxide (22-30) mmol/L Anion Gap (5-15) MEQ/L BUN (7-17) mg/dL Creatinine (0.52-1.04) mg/dL Estimated GFR ML/MIN Glucose (74-106) mg/dL Calcium (8.4-10.2) mg/dL Total Bilirubin (0.2-1.3) mg/dL AST (14-36) U/L ALT (0-35) U/L Alkaline Phosphatase (38-126) U/L Serum Total Protein (6.3-8.2) g/dL Albumin (3.5-5.0) g/dL Lipase (23-300) U/L Serum HCG, Qual NEGATIVE (NEGATIVE) Urine Color (Yellow) Urine Appearance (Clear) Urine pH (4.6-8.0) Ur Specific [place] (1.005-1.030) Urine Protein (Negative) Urine Glucose (UA) (Negative) mg/dL Urine Ketones (Negative) Urine Blood (Negative) Urine Nitrite (Negative) Urine Bilirubin (Negative) Urine Urobilinogen (0.2) mg/dL Ur Leukocyte Esterase (Negative) U Hyaline Cast (Auto) (0-2) /LPF Urine Microscopic RBC (0-5) /HPF Urine Microscopic WBC (0-5) /HPF Ur Epithelial Cells (None Seen) /HPF Urine Bacteria (None Seen) /HPF Granular Casts (None Seen) /LPF Urine Culture Reflexed (NO) Influenza Type A Ag POSITIVE A (NEGATIVE) Influenza Type B Ag NEGATIVE (NEGATIVE) RSV (PCR) NEGATIVE (NEGATIVE) SARS-CoV-2 (PCR) NEGATIVE (NEGATIVE) Group A Strep Antibody (NEGATIVE) 05/24/24 05/24/24 Range/Units 07:35 07:55 WBC (3.98-10.04) x10^3/uL RBC (3.93-5.22) x10^6/uL Hgb (11.2-15.7) g/dL Hct (34.1-44.9) % MCV (79.4-94.8) fL MCH (25.6-32.2) pg MCHC (32.2-35.5) g/dL RDW (11.7-14.4) % Plt Count (182-369) x10^3/uL MPV (9.4-12.3) fL Gran % (34.0-71.1) % Immature Gran % (Auto) (0.001-0.429) % Nucleat RBC Rel Count (0.00-0.2) % Eos # (Auto) (0.04-0.36) x10^3/uL Immature Gran # (Auto) (0.001-0.031) x10^3u/L Absolute Lymphs (auto) (1.18-3.74) x10^3/uL Absolute Monos (auto) (0.24-0.86) x10^3/uL Absolute Nucleated RBC (0.00-0.012) x10^3u/L Lymphocytes % (19.3-51.7) % Monocytes % (4.7-12.5) % Eosinophils % (0.7-5.8) % Basophils % (0.1-1.2) % Absolute Granulocytes (1.56-6.13) x10^3/uL Basophils # (0.01-0.08) x10^3/uL Sodium 142 (135-145) mmol/L Potassium 3.6 (3.5-5.1) mmol/L Chloride 109 H (98-107) mmol/L Carbon Dioxide 20 L (22-30) mmol/L Anion Gap 16.5 H (5-15) MEQ/L BUN 4 L (7-17) mg/dL Creatinine 0.84 (0.52-1.04) mg/dL Estimated GFR 100.1 ML/MIN Glucose 101 (74-106) mg/dL Calcium 8.4 (8.4-10.2) mg/dL Total Bilirubin 0.80 (0.2-1.3) mg/dL AST 34 (14-36) U/L ALT 22 (0-35) U/L Alkaline Phosphatase 65 (38-126) U/L Serum Total Protein 7.0 (6.3-8.2) g/dL Albumin 4.0 (3.5-5.0) g/dL Lipase (23-300) U/L Serum HCG, Qual (NEGATIVE) Urine Color (Yellow) Urine Appearance (Clear) Urine pH (4.6-8.0) Ur Specific [place] (1.005-1.030) Urine Protein (Negative) Urine Glucose (UA) (Negative) mg/dL Urine Ketones (Negative) Urine Blood (Negative) Urine Nitrite (Negative) Urine Bilirubin (Negative) Urine Urobilinogen (0.2) mg/dL Ur Leukocyte Esterase (Negative) U Hyaline Cast (Auto) (0-2) /LPF Urine Microscopic RBC (0-5) /HPF Urine Microscopic WBC (0-5) /HPF Ur Epithelial Cells (None Seen) /HPF Urine Bacteria (None Seen) /HPF Granular Casts (None Seen) /LPF Urine Culture Reflexed (NO) Influenza Type A Ag (NEGATIVE) Influenza Type B Ag (NEGATIVE) RSV (PCR) (NEGATIVE) SARS-CoV-2 (PCR) (NEGATIVE) Group A Strep Antibody NOT DETECTED (NEGATIVE) Microbiology 05/23/24 14:18 Urine Culture - Preliminary Clean Catch Midstream NO GROWTH TO DATE - Radiology Impressions Radiology Exams & Impressions: Radiology Procedures Category Date Time Status ABDOMEN AND PELVIS W/0 CONTRAS [CT] Stat Exams 05/23/24 14:13 Completed Assessment/Plan (1) Acute cholecystitis Current Visit: Yes Status: Acute Assessment & Plan: acute cholecystitis. guido sign on exam CT with gallstone at neck. pain persistent. -to OR lap nicole possible open gen. Code(s): K81.0 - ACUTE CHOLECYSTITIS
[2024-05-24] MEDS ORDERED: Transderm Scop 1.5MG Patch ONE (10:19)
[2024-05-24] MEDS: Transderm Scop 1.5MG Patch TOP ONE (10:21)
[2024-05-24] MEDS ORDERED: Versed 2 MG/2 ML Injection ONE (10:29)
[2024-05-24] MEDS ORDERED: SUBLIMAZE 100 MCG/2 ML ONE ×2 (10:30→11:19)
[2024-05-24] MEDS ORDERED: Xylocaine-Mpf 2% 5 Ml Vial ONE (10:33)
[2024-05-24] MEDS ORDERED: ROCURONIUM BROMIDE IV ONE (10:33)
[2024-05-24] MEDS ORDERED: propofoL IV ONE ×2 (10:33→10:34)
[2024-05-24] MEDS ORDERED: DEXMEDETOMIDINE 80 MCG/20ML-NS IV ONE (10:33)
[2024-05-24] MEDS ORDERED: BRIDION 200MG/2ML IV ONE (10:33)
[2024-05-24] MEDS ORDERED: dexAMETHasone sodium phosphate ONE (10:33)
[2024-05-24] MEDS ORDERED: Zofran 4 MG/2 ML VIAL ONE (10:33)
[2024-05-24] MEDS ORDERED: OFIRMEV 100 ML IV ONE (10:40)
[2024-05-24] MEDS ORDERED: Pre-Attached Lta Kit TP ONE (10:40)
[2024-05-24] MEDS ORDERED: ROBINUL ONE (10:42)
[2024-05-24] MEDS ORDERED: ATROPINE SULFATE 1MG ONE (10:43)
[2024-05-24] MEDS ORDERED: SODIUM CHLORIDE MINI IV ONE (10:50)
[2024-05-24] MEDS ORDERED: MEFOXIN IV ONE (10:50)
[2024-05-24] MEDS ORDERED: CHLORASEPTIC SPRAY 180 ML PO PRN (10:56)
[2024-05-24] MEDS ORDERED: TORAdol 30 mg Injection ONE (11:32)
[2024-05-24] MEDS ORDERED: Lactated Ringers 1,000 ML IV ONE (11:39)
[2024-05-24] MEDS ORDERED: Sensorcaine 0.25% 10 ML ONE (11:39)
[2024-05-24] MEDS ORDERED: Sodium Chloride 0.9% 1000 ML 1,000 ML ONE (11:39)
[2024-05-24] MEDS ORDERED: Hydromorphone 1 mg/ml Injection ONE (12:03)
[2024-05-24] MEDS: NORCO 5/325 MG PO PRN (13:34)
[2024-05-24] MEDS: Tamiflu 75MG Capsule PO SCH (13:34)
[2024-05-24] MEDS: PIPERACILLIN/TAZOBACTAM 3.375 GM in Sodium Chloride 100ML MINI-BAG PLUS 100 ML IV SCH (13:35)
--- NOTE | 2024-05-24 14:11 | XRAY ---
CLINICAL HISTORY: FluA shortness of breath COMPARISON: CT abdomen dated 05/23/2024 was reviewed. TECHNIQUE: X-ray images of the chest were obtained in AP portable projection. FINDINGS: Pulmonary Parenchyma: Poor inspiratory film Bilateral basal and left retrocardiac opacity/infiltrates. Possible infective etiology: Advise clinical correlation and follow-up. No pulmonary nodules were identified. No evidence of sizable pleural effusion Heart and Mediastinum: Cardiac size is enlarged. No hilar or mediastinal lymphadenopathy. Bony Thorax: The bony thorax appears intact without fractures or deformities. Soft Tissues: Soft tissues overlying the chest wall are unremarkable. IMPRESSION: 1. Poor inspiratory film. 2. Bilateral basal and left retrocardiac opacity/infiltrates. Possible infective etiology: Advise clinical correlation and follow-up, as the previous CT abdomen done yesterday showed clear lung bases Electronically Signed by: Fahad Marin MD. (05/24/2024 14:07:32 EST)
[2024-05-24] MEDS: Levofloxacin 500 MG Tablet PO SCH (17:29)
[2024-05-24] MEDS: Levofloxacin 250MG Tablet PO SCH (17:29)
[2024-05-24] MEDS: NORCO 10-325 MG PO PRN (17:37)
[2024-05-24] MEDS: Sodium Chloride 0.9% 1000 ML 1,000 ML IV SCH (17:41)
[2024-05-24] MEDS ORDERED: TORAdol 30 mg Injection IV PRN (18:57)
[2024-05-24] MEDS: TORAdol 30 mg Injection IM PRN (20:24)
[2024-05-24] MEDS: Augmentin 875-125 Tablet PO SCH (22:11)
[2024-05-24] MEDS ORDERED: Zofran 4 MG/2 ML VIAL PO PRN (23:28)
[2024-05-24] MEDS: ZOFRAN ODT 4 MG PO PRN (23:34)
[2024-05-25 05:43] LABS: BASOPHIL % 0.2 % (0.1-1.2); Basophil (Absolute #) 0.01 x10^3/uL (0.01-0.08); Eosinophil % 0.2 % (0.7-5.8); Eosinophil (Absolute #) 0.01 x10^3/uL (0.04-0.36); Hematocrit 42.4 % (34.1-44.9); IMMATURE GRAN # 0.01 x10^3u/L (0.001-0.031); IMMATURE GRAN % 0.2 % (0.001-0.429); Lymphocyte (Absolute #) 1.81 x10^3/uL (1.18-3.74); Lymphocytes % 33.3 % (19.3-51.7); Mean Cell Volume 87.4 fL (79.4-94.8); Mean Corpuscular Hemoglobin 28.9 pg (25.6-32.2); Mean Platelet Volume 11.8 fL (9.4-12.3); Neutrophil % 55.1 % (34.0-71.1); Platelet Count 218 x10^3/uL (182-369); Red Blood Count 4.85 x10^6/uL (3.93-5.22); Red Cell Distribution Width 12.9 % (11.7-14.4); White Blood Count 5.4 x10^3/uL (3.98-10.04)
[2024-05-25 05:59] LABS: ALBUMIN 4.2 g/dL (3.5-5.0); BILIRUBIN,TOTAL 0.7 mg/dL (0.2-1.3); Calcium 8.9 mg/dL (8.4-10.2); Creatinine 1 0.82 mg/dL (0.52-1.04); Potassium 3.8 mmol/L (3.5-5.1); Total Protein 7.1 g/dL (6.3-8.2)
[2024-05-25 07:32] VITALS: RESP 16
[2024-05-25 11:56] VITALS: BP 119/73; PULSE 57; TEMP 98; O2SAT 95
--- NOTE | 2024-05-25 13:45 | PCM.DS ---
Discharge Summary Date of Admission: 05/23/24 18:20 Date of Discharge: 05/25/24 Admitting Physician: BECKY CEE MD Primary Care Provider: FARRAH,NIK Allergies Allergies bee venom protein (honey bee) Allergy (Verified 05/23/24 13:43) latex Allergy (Verified 05/23/24 13:43) Hospital Summary - Hospital Course Hospital Course: Ms Schneider is a 23 year old female with a pmhx of bipolar disorder, anxiety, and depression who presented to ED 05/23/24 with complaints of a week history of RUQ pain with associated nausea and vomiting. Patient also endorsed congestion and cough. Upon arrival to ED patient with bradycardia otherwise stable vitals. CT of the abdomen/pelvis demonstrated subtle increased density of the gallbladder and its wall cannot be accurately delineated. Initial lab findings remarkable for mildly elevated creat. Surgery consulted plan for surgical intervention. Patient received Zosyn and IVF bolus in ED as well as pain control and nausea meds. Admit for acute cholecystitis. Lap Cholecystecomy performed 05/24/24. Patient also found to have FluA with possible pneumonia. No overnight events noted. Dyspnea and cough improved. Patient on RA. Labs/ vitals stable. +Flatulence. Nausea/vomiting have resolved. Patient has been cleared by surgery for discharge. Will dismiss home with Tamiflu, augmentin, and norco for pain control. Patient advised to ambulate to aid with pain relief. Discharge Note New Diagnosis: Acute cholecystitis/ FluA/ pneumonia New Medications: augmentin/tamiflu/ norco Follow Up: Surgery I spent 35 minutes [id number] with the patient on the day of discharge performing discharge exam, discussing hospital stay and discharge instructions with patient and caregivers, preparation of discharge records, prescriptions & referral forms and addressing any questions/concerns the patient had as documented above. - Vitals & Intake/Output Vital Signs: Vital Signs Temperature 98.0 F 05/25/24 11:55 Pulse Rate 57 L 05/25/24 11:55 Respiratory Rate 16 05/25/24 11:55 Blood Pressure 119/73 05/25/24 11:55 O2 Sat by Pulse Oximetry 95 05/25/24 11:55 Intake & Output: Intake & Output 05/23/24 05/24/24 05/25/24 05/26/24 11:59 11:59 11:59 11:59 Intake Total 0 2250 Balance 0 2250 Weight 131.4 kg - Lab Result Diagrams: 05/25/24 04:45 05/25/24 04:45 Lab Results-Last 24 Hrs: Lab Results-Last 24 Hours 05/25/24 05/25/24 Range/Units 04:45 04:45 WBC 5.4 (3.98-10.04) x10^3/uL RBC 4.85 (3.93-5.22) x10^6/uL Hgb 14.0 (11.2-15.7) g/dL Hct 42.4 (34.1-44.9) % MCV 87.4 (79.4-94.8) fL MCH 28.9 (25.6-32.2) pg MCHC 33.0 (32.2-35.5) g/dL RDW 12.9 (11.7-14.4) % Plt Count 218 (182-369) x10^3/uL MPV 11.8 (9.4-12.3) fL Gran % 55.1 (34.0-71.1) % Immature Gran % (Auto) 0.2 (0.001-0.429) % Nucleat RBC Rel Count 0.0 (0.00-0.2) % Eos # (Auto) 0.01 L (0.04-0.36) x10^3/uL Immature Gran # (Auto) 0.01 (0.001-0.031) x10^3u/L Absolute Lymphs (auto) 1.81 (1.18-3.74) x10^3/uL Absolute Monos (auto) 0.60 (0.24-0.86) x10^3/uL Absolute Nucleated RBC 0.00 (0.00-0.012) x10^3u/L Lymphocytes % 33.3 (19.3-51.7) % Monocytes % 11.0 (4.7-12.5) % Eosinophils % 0.2 L (0.7-5.8) % Basophils % 0.2 (0.1-1.2) % Absolute Granulocytes 3.00 (1.56-6.13) x10^3/uL Basophils # 0.01 (0.01-0.08) x10^3/uL Sodium 140 (135-145) mmol/L Potassium 3.8 (3.5-5.1) mmol/L Chloride 105 (98-107) mmol/L Carbon Dioxide 21 L (22-30) mmol/L Anion Gap 18.0 H (5-15) MEQ/L BUN 4 L (7-17) mg/dL Creatinine 0.82 (0.52-1.04) mg/dL Estimated GFR 103.0 ML/MIN Glucose 93 (74-106) mg/dL Calcium 8.9 (8.4-10.2) mg/dL Total Bilirubin 0.70 (0.2-1.3) mg/dL AST 76 H (14-36) U/L ALT 49 H (0-35) U/L Alkaline Phosphatase 58 (38-126) U/L Serum Total Protein 7.1 (6.3-8.2) g/dL Albumin 4.2 (3.5-5.0) g/dL Micro Results-Entire Visit: Microbiology 05/23/24 14:18 Urine Culture - Final Clean Catch Midstream MIXED JARRELL; 3 OR MORE TYPES. NO PREDOMINANT ORGANISM. NO FURTHER WORKUP. PLEASE RESUBMIT IF CLINICALLY INDICATED. - Radiology Exams Ordered Rad Exams-Entire Visit: Radiology Procedures Category Date Time Status ABDOMEN AND PELVIS W/0 CONTRAS [CT] Stat Exams 05/23/24 14:13 Completed CHEST 1 VIEW (PORTABLE) Routine Exams 05/24/24 12:55 Completed Discharge Exam General Appearance: no apparent distress Neurologic Exam: alert, oriented x 3, cooperative Eye Exam: PERRL Ears, Nose, Throat Exam: normal ENT inspection Neck Exam: normal inspection Respiratory Exam: normal breath sounds, lungs clear Cardiovascular Exam: regular rate/rhythm, normal heart sounds Gastrointestinal/Abdomen Exam: soft, normal bowel sounds, tenderness, other (4 punctures sites covered with gauze/tegaderm CDI) Pelvic Exam: deferred Rectal Exam: deferred Back Exam: normal inspection Extremity Exam: normal inspection Skin Exam: normal color Wound Assessment: Skin/Wound Assessment Wound/Incision Assessment Start: 05/23/24 18:55 Text: Status: Active Freq: Q6H Protocol: Document 05/25/24 08:00 RB (Rec: 05/25/24 08:15 RB [id number]) Wound/Incision Assessment Upper Anterior Abdomen Wound Assessment Shift Assessment Wound Type Incision Wound Stage Non Pressure Wound Drainage Amount Minimal Drainage Odor None/Absent Comment Patient has 4 incision sites to abdomen. All covered with gauze, tape, and tegaderm. No new drainage from previous assessment Wound Photo Photo Taken No Final Diagnosis/Problem List - Final Discharge Diagnosis/Problem (1) Acute cholecystitis Current Visit: Yes Status: Resolved Code(s): K81.0 - ACUTE CHOLECYSTITIS (2) Nausea & vomiting Current Visit: No Status: Resolved Code(s): R11.2 - NAUSEA WITH VOMITING, UNSPECIFIED (3) Acute metabolic acidosis Current Visit: Yes Status: Resolved Code(s): E87.21 - ACUTE METABOLIC ACIDOSIS (4) Sore throat Current Visit: Yes Status: Resolved Code(s): J02.9 - ACUTE PHARYNGITIS, UNSPECIFIED (5) Influenza A Current Visit: Yes Status: Acute Code(s): J10.1 - FLU DUE TO OTH IDENT INFLUENZA VIRUS W OTH RESP MANIFEST (6) Infiltrate noted on imaging study Current Visit: Yes Status: Acute Code(s): R93.89 - ABNORMAL FINDINGS ON DX IMAGING OF OTH BODY STRUCTURES - Discharge Discharge Date: 05/25/24 Disposition: Home, Self-Care Condition: Stable Prescriptions: New Hydrocodone/Acetaminophen [Hydrocodone-Acetamin 5-325 mg] 1 tab PO Q6HPRN PRN 7 Days #20 tablet MDD 4 PRN Reason: Pain Amox Tr/Potass Clav. 875 mg [Augmentin 875-125 Tablet] 875 mg PO TID 7 Days #21 tablet Oseltamivir 75 mg [Tamiflu 75MG Capsule] 75 mg PO BID 3 Days #6 cap Follow up with: MONIQUE BONDS MD [ACTIVE STAFF] - NIK YAN MD [Primary Care Provider] -
--- NOTE | 2024-06-05 09:46 | OP ---
SURGERY DATE: 05/24/2024 [id number] PREOPERATIVE DIAGNOSIS: Acute cholecystitis. POSTOPERATIVE DIAGNOSIS: Cholecystitis. PROCEDURE PERFORMED: Laparoscopic cholecystectomy. SURGEON: Valentín Delaney MD ANESTHESIA: General. ESTIMATED BLOOD LOSS: Minimal. PATIENT CONDITION: Stable. COMPLICATIONS: None. SPECIMENS: Gallbladder. INDICATION: The patient presents with acute right upper quadrant abdominal pain. Colon's sign on examination. Laboratory workup unremarkable, nonobstructive and then a CT scan shows questionable density at the neck of the gallbladder, question sludge. Discussed with patient option would be proceeding with ultrasound or a HIDA scan to assess for acute cholecystitis. Alternatively could proceed with cholecystectomy. Risk of infection, bleeding, injury to nearby structure, hernia, failure to resolve symptoms were discussed with the patient, that it is possible that this is not acute cholecystitis, suspicious with her exam findings and the imaging so far. She does want to proceed with cholecystectomy. FINDINGS: Distended gallbladder, critical view. DESCRIPTION OF PROCEDURE AND FINDINGS: The patient was brought to the operating room. General anesthesia induced. Routinely positioned, prepped and draped. Time-out performed. Received a preoperative antibiotic. The 5 mm Optiview trocar placed in the left upper quadrant. Pneumoperitoneum was established. An 11 mm right paramedian trocar placed. Two additional 5 mm trocars were placed in the right upper quadrant. The patient was positioned. The gallbladder was retracted. Cystic duct and cystic artery were dissected out. There was just a distended gallbladder but not terribly inflamed. The critical view was clearly obtained. Both were clipped with 5 mm metal clip finish machine tender and then divided. Gallbladder taken off the liver bed, placed in a specimen bag, removed through the 11 mm trocar site. The right upper quadrant reinspected. There was good hemostasis. Clips were in good position. The 11 trocar closed with 0 Vicryl interrupted suture passer. The right upper quadrant ports were removed under direct visualization. The left upper quadrant port used for desufflation and then removed. Marcaine had been injected at all the incision sites. The skin was closed with 4-0 Vicryl suture. Steri-Strips and sterile dressing was applied. All counts were correct. The patient tolerated the procedure well, was extubated, taken to Recovery in stable condition.
== END 2024-05-25 15:30 | disposition home or self-care (01) ==
LOC: ED 13:05 → MED SURG 18:20
PROVIDERS: ADMIT Internal Medicine; ATTEND Internal Medicine
DX: K81.0 Acute cholecystitis (principal); R11.2 Nausea with vomiting, unspecified; E87.21 Acute metabolic acidosis; F31.9 Bipolar disorder, unspecified; F41.9 Anxiety disorder, unspecified; R00.1 Bradycardia, unspecified; F17.200 Nicotine dependence, unspecified, uncomplicated; J10.1 Influenza due to other identified influenza virus with other respiratory manifestations; R93.89 Abnormal findings on diagnostic imaging of other specified body structures; E66.9 Obesity, unspecified; N17.9 Acute kidney failure, unspecified
CPT/HCPCS: 00790; 0241U; 36415; 47562; 71045; 74176; 80053; 81001; 83690; 84703; 85025; 85027; 87086; 87651; 93005; 96374; 96375; 96376; 99140; 99285; G0378; Q3014; 99284; J0461; J1100; J1171; J1885; J2250; J2270; J2405; J2704; J3010; Q0162; A9270-GY

== ENCOUNTER 2024-05-28 06:11 | Emergency (ER) | payer OTHER ==
[2024-05-28 06:44] VITALS: TEMP 97.1
[2024-05-28] MEDS ORDERED: Zofran 4 MG/2 ML VIAL ONE (07:27)
[2024-05-28] MEDS ORDERED: SUBLIMAZE 100 MCG/2 ML ONE (07:30)
[2024-05-28] MEDS ORDERED: Sodium Chloride 0.9% 1000 ML 1,000 ML ONE (07:30)
[2024-05-28] MEDS: Sodium Chloride 0.9% 1000 ML 1,000 ML IV STA (07:32)
[2024-05-28] MEDS: Zofran 4 MG/2 ML VIAL IV ONE (07:32)
[2024-05-28] MEDS: SUBLIMAZE 100 MCG/2 ML IV ONE (07:55)
[2024-05-28 08:05] LABS: Hematocrit 46.3 % (34.1-44.9); Hemoglobin 15.9 g/dL (11.2-15.7); Mean Cell Volume 85.1 fL (79.4-94.8); Mean Corpuscular Hemoglobin 29.2 pg (25.6-32.2); Mean Corpuscular Hgb Concent. 34.3 g/dL (32.2-35.5); Mean Platelet Volume 11.4 fL (9.4-12.3); Platelet Count 259 x10^3/uL (182-369); Red Blood Count 5.44 x10^6/uL (3.93-5.22); Red Cell Distribution Width 12.6 % (11.7-14.4); White Blood Count 7.7 x10^3/uL (3.98-10.04)
[2024-05-28 08:17] LABS: ALBUMIN 4.7 g/dL (3.5-5.0); ANION GAP 20.6 MEQ/L (5-15); BILIRUBIN,TOTAL 1.3 mg/dL (0.2-1.3); Calcium 9.4 mg/dL (8.4-10.2); Creatinine 1 0.78 mg/dL (0.52-1.04); EST GLOMERULAR FILTRATION RATE 109.4 ML/MIN; Potassium 4.3 mmol/L (3.5-5.1); Total Protein 8.4 g/dL (6.3-8.2)
[2024-05-28 08:33] LABS: ATYPICAL LYMPHS 4 %; Lymphocytes 37 % (19.3-51.7); Monocyte 13 % (4.7-12.5); Neutrophils 46 % (34.0-71.1); Total Cells Counted 100
[2024-05-28 08:34] LABS: Platelet Estimate NORMAL (NORMAL)
--- NOTE | 2024-05-28 09:01 | ERPHSYRPT ---
- History of Present Illness Time Seen by Provider: 05/28/24 08:20 Historian: patient, family Exam Limitations: no limitations Patient Subjective Stated Complaint: PT. STATES, "I HAD SURGERY LAST SATURDAY TO REMOVE MY GALL BLADDER. DR. MONIQUE BONDS WAS SURGEON. I HAVE BEEN VOMITING SINCE BEFORE THEY RELEASED ME AND THE ZOFRAN ISN'T HELPING." Triage Nursing Assessment: PT. A&OX3, PLEASANT COOPERATIVE, AMBULATED TO ROOM WITH SLOW GAIT, GUARDING ABDOMEN. RESP. EVEN UNLABORED. ABLE TO MOVE ALL FOUR EXT., FOUR PUNCTURE SITES FROM LAPROSCOPIC SURGERY ON ABDOMEN WITH DRSSINGS C/D/I. Physician History: 23 years old male with laparoscopic cholecystectomy postop day 4 presented in the ER with complains of intractable vomiting with some upper abdominal pains since discharge despite taking Zofran's as recommended. Patient reports she is not able to hold her pain medications down. Feels weak fatigued tired and dehyd rated. No fever or chills reported. Allergies/Adverse Reactions: bee venom protein (honey bee) Allergy (Verified 05/23/24 13:43) latex Allergy (Verified 05/23/24 13:43) Hx Tetanus, Diphtheria Vaccination/Date Given: Yes Hx Influenza Vaccination/Date Given: No Hx Pneumococcal Vaccination/Date Given: No Immunizations Up to Date: No Travel Risk - International Travel Have you traveled outside of the country in past 3 weeks: No - Emerging Infectious Disease Are you exhibiting symptoms associated with any current EIDs: No Symptoms: Abdominal Pain, Diarrhea - Review of Systems Constitutional: Fatigue, Weakness Eyes: No Symptoms Ears, Nose, & Throat: No Symptoms Respiratory: No Symptoms Cardiac: No Symptoms Abdominal/Gastrointestinal: Abdominal Pain, Nausea, Vomiting Genitourinary Symptoms: No Symptoms Musculoskeletal: Myalgias Skin: No Symptoms Neurological: No Symptoms Psychological: No Symptoms Endocrine: No Symptoms Hematologic/Lymphatic: No Symptoms Immunological/Allergic: No Symptoms - Past Medical History Pertinent Past Medical History: Yes Neurological History: No Pertinent History ENT History: No Pertinent History Cardiac History: No Pertinent History Respiratory History: No Pertinent History Endocrine Medical History: No Pertinent History Musculoskeletal History: No Pertinent History GI Medical History: No Pertinent History History: No Pertinent History Psycho-Social History: Anxiety, Bipolar, Depression Female Reproductive Disorders: No Pertinent History Other Medical History: PTSD, Borderline personality disorder - Past Surgical History Past Surgical History: Yes Neuro Surgical History: No Pertinent History Cardiac: No Pertinent History Respiratory: No Pertinent History Gastrointestinal: No Pertinent History Genitourinary: No Pertinent History Musculoskeletal: No Pertinent History Female Surgical History: No Pertinent History Other Surgical History: wisdom teeth, LAP EARNESTINE ON 05/24/24 - Female History Hx Last Menstrual Period: LAST WEEK Hx Now: No - Social History Smoking Status: Never smoker Exposure to second hand smoke: No Drug Use: none - Social Determinants of Health Will the patient participate in the screening: Declined to provide - Nursing Vital Signs Nursing Vital Signs: Initial Vital Signs Temperature 97.1 F 05/28/24 06:33 Pulse Rate 65 05/28/24 06:33 Respiratory Rate 18 05/28/24 06:33 Blood Pressure 112/73 05/28/24 06:33 O2 Sat by Pulse Oximetry 97 05/28/24 06:33 Pain Scale Pain Intensity 8 - Physical Exam General Appearance: no apparent distress Eye Exam: PERRL/EOMI Ears, Nose, Throat Exam: normal ENT inspection Neck Exam: normal inspection, non-tender, supple, full range of motion Respiratory Exam: normal breath sounds, lungs clear Cardiovascular Exam: regular rate/rhythm, normal heart sounds Gastrointestinal/Abdomen Exam: soft, tenderness (Appropriate tenderness in the upper abdomen), other (Incision clean and dry), No normal bowel sounds (Hypoactive) Back Exam: normal inspection, normal range of motion Extremity Exam: normal inspection, normal range of motion Neurologic Exam: alert, oriented x 3, cooperative Skin Exam: normal color SpO2 Interpretation: normal SpO2: 96 O2 Delivery: Room Air Ordered Tests: Active Orders 24 hr Category Date Time Status IV Insertion STAT Care 05/28/24 07:25 Active NPO (ED) STAT Care 05/28/24 07:25 Active ABDOMEN AND PELVIS W CONTRAST [CT] Stat Exams 05/28/24 07:26 Completed AMYLASE Stat Lab 05/28/24 07:50 Completed CBC W DIFF Stat Lab 05/28/24 07:50 Completed CMP Stat Lab 05/28/24 07:50 Completed LIPASE Stat Lab 05/28/24 07:50 Completed Lactic Acid Stat Lab 05/28/24 07:55 Completed Manual Differential NC Stat Lab 05/28/24 07:50 Completed UA W/RFX UR CULTURE Stat Lab 05/28/24 09:17 Completed Medication Summary Discontinued Medications Generic Name Dose Route Start Last Admin Trade Name Freq PRN Reason Stop Dose Admin Fentanyl Citrate Confirm 05/28/24 07:30 Fentanyl Citrate 100 Mcg/2 Ml* Vial Administered 05/28/24 07:31 Dose 100 mcg .ROUTE .STK-MED ONE Fentanyl Citrate 50 mcg 05/28/24 07:30 05/28/24 07:55 Fentanyl Citrate 100 Mcg/2 Ml* Vial IV 05/28/24 07:31 50 mcg STAT ONE Administration Sodium Chloride 1,000 mls @ 999 mls/hr 05/28/24 07:25 05/28/24 08:52 Sodium Chloride 0.9% 1000 Ml IV 05/28/24 08:25 Infused .Q1H1M STA Infusion Sodium Chloride Confirm 05/28/24 07:30 Sodium Chloride 0.9% 1000 Ml Administered 05/28/24 07:31 Dose 1,000 mls @ ud .ROUTE .STK-MED ONE Ondansetron HCl 4 mg 05/28/24 07:25 05/28/24 07:32 Ondansetron Hcl 4 Mg/2 Ml Vial IV 05/28/24 07:26 4 mg STAT ONE Administration Ondansetron HCl Confirm 05/28/24 07:27 Ondansetron Hcl 4 Mg/2 Ml Vial Administered 05/28/24 07:28 Dose 4 mg .ROUTE .STK-MED ONE Prochlorperazine Edisylate 5 mg 05/28/24 09:50 05/28/24 09:53 Prochlorperazine Edisylate 10 Mg/2 Ml Vial IV 05/28/24 09:51 5 mg STAT ONE Administration Prochlorperazine Edisylate Confirm 05/28/24 09:51 Prochlorperazine Edisylate 10 Mg/2 Ml Vial Administered 05/28/24 09:52 Dose 10 mg .ROUTE .STK-MED ONE Lab/Rad Data: Laboratory Result Diagrams 05/28/24 07:50 05/28/24 07:50 Laboratory Results 05/28/24 05/28/24 05/28/24 Range/Units 09:17 07:55 07:50 WBC (3.98-10.04) x10^3/uL RBC (3.93-5.22) x10^6/uL Hgb (11.2-15.7) g/dL Hct (34.1-44.9) % MCV (79.4-94.8) fL MCH (25.6-32.2) pg MCHC (32.2-35.5) g/dL RDW (11.7-14.4) % Plt Count (182-369) x10^3/uL MPV (9.4-12.3) fL Segmented Neutrophils (34.0-71.1) % Lymphocytes (Manual) (19.3-51.7) % Monocytes (Manual) (4.7-12.5) % Atypical Lymphocytes % Platelet Estimate (NORMAL) RBC Morphology Sodium 143 (135-145) mmol/L Potassium 4.3 (3.5-5.1) mmol/L Chloride 109 H (98-107) mmol/L Carbon Dioxide 18 L (22-30) mmol/L Anion Gap 20.6 H (5-15) MEQ/L BUN 5 L (7-17) mg/dL Creatinine 0.78 (0.52-1.04) mg/dL Estimated GFR 109.4 ML/MIN Glucose 105 (74-106) mg/dL Lactic Acid 2.5 H (0.4-2.0) Calcium 9.4 (8.4-10.2) mg/dL Total Bilirubin 1.30 (0.2-1.3) mg/dL AST 60 H (14-36) U/L ALT 66 H (0-35) U/L Alkaline Phosphatase 73 (38-126) U/L Serum Total Protein 8.4 H (6.3-8.2) g/dL Albumin 4.7 (3.5-5.0) g/dL Amylase 59 (30-110) U/L Lipase 109 (23-300) U/L Urine Color Yellow (Yellow) Urine Appearance Clear (Clear) Urine pH 7.5 (4.6-8.0) Ur Specific [place] >=1.030 A (1.005-1.030) Urine Protein Negative (Negative) Urine Glucose (UA) Negative (Negative) mg/dL Urine Ketones 15 A (Negative) Urine Blood Small A (Negative) Urine Nitrite Negative (Negative) Urine Bilirubin Negative (Negative) Urine Urobilinogen 0.2 (0.2) mg/dL Ur Leukocyte Esterase Negative (Negative) U Hyaline Cast (Auto) NONE SEEN (0-2) /LPF Urine Microscopic RBC 6-10 A (0-5) /HPF Urine Microscopic WBC 0-2 (0-5) /HPF Ur Epithelial Cells Rare (None Seen) /HPF Urine Bacteria None Seen (None Seen) /HPF Urine Culture Reflexed NO (NO) 05/28/24 Range/Units 07:50 WBC 7.7 (3.98-10.04) x10^3/uL RBC 5.44 H (3.93-5.22) x10^6/uL Hgb 15.9 H (11.2-15.7) g/dL Hct 46.3 H (34.1-44.9) % MCV 85.1 (79.4-94.8) fL MCH 29.2 (25.6-32.2) pg MCHC 34.3 (32.2-35.5) g/dL RDW 12.6 (11.7-14.4) % Plt Count 259 (182-369) x10^3/uL MPV 11.4 (9.4-12.3) fL Segmented Neutrophils 46 (34.0-71.1) % Lymphocytes (Manual) 37 (19.3-51.7) % Monocytes (Manual) 13 H (4.7-12.5) % Atypical Lymphocytes 4 % Platelet Estimate NORMAL (NORMAL) RBC Morphology NORMAL Sodium (135-145) mmol/L Potassium (3.5-5.1) mmol/L Chloride (98-107) mmol/L Carbon Dioxide (22-30) mmol/L Anion Gap (5-15) MEQ/L BUN (7-17) mg/dL Creatinine (0.52-1.04) mg/dL Estimated GFR ML/MIN Glucose (74-106) mg/dL Lactic Acid (0.4-2.0) Calcium (8.4-10.2) mg/dL Total Bilirubin (0.2-1.3) mg/dL AST (14-36) U/L ALT (0-35) U/L Alkaline Phosphatase (38-126) U/L Serum Total Protein (6.3-8.2) g/dL Albumin (3.5-5.0) g/dL Amylase (30-110) U/L Lipase (23-300) U/L Urine Color (Yellow) Urine Appearance (Clear) Urine pH (4.6-8.0) Ur Specific [place] (1.005-1.030) Urine Protein (Negative) Urine Glucose (UA) (Negative) mg/dL Urine Ketones (Negative) Urine Blood (Negative) Urine Nitrite (Negative) Urine Bilirubin (Negative) Urine Urobilinogen (0.2) mg/dL Ur Leukocyte Esterase (Negative) U Hyaline Cast (Auto) (0-2) /LPF Urine Microscopic RBC (0-5) /HPF Urine Microscopic WBC (0-5) /HPF Ur Epithelial Cells (None Seen) /HPF Urine Bacteria (None Seen) /HPF Urine Culture Reflexed (NO) - Progress Progress: improved, re-examined Progress Note: 05/28/24 11:54 23-year-old is evaluated in the ER for abdominal discomfort with nausea vomiting and inability to tolerate orally since her discharge from hospital from recent cholecystectomy. Patient is appropriate tenderness in upper abdomen with clean incisions. She is afebrile. Stable vitals. Workup showed normal white count, chemistries fairly unremarkable except for mild element of dehydration, given fluids and Zofran, still has some nausea and dry heaving and couple of episodes of vomiting, given Compazine which helped a lot. She has normal lipase and amylase. CT abdomen pelvis with contrast is negative for any acute intra-abdominal pelvic findings suggesting any complication of recent surgical intervention or any other acute pathology but has appropriate changes from recent surgery. I have shared the results of workup with Dr. Derrick Bonds, recommended p.o. challenge and if tolerated, patient can be discharged with outpatient follow-up as routine. I have shared the results of workup with patient and family and discussion with general surgeon, recommendations which they understand and agree. Complexity of problems addressed is moderate acute Complexity of data review. Acute high risk, test ordered reviewed and compared with the previous, correlated management. Discussed with specialist, Plan of care established for shared decision making. No social determinants of health to impede follow-up. Discussed with .: Callum Will see patient in: office Counseled pt/family regarding: lab results, diagnosis, need for follow-up, rad results Medical Desision Making - Independent Historian Additional History obtained from: Mother - Discussion of managment Care discussed with:: specialist (Derrick Bonds) Reviewed:: Test results Agreed on:: Treatment plan Will see patient: In office - Diagnostic Testing Diagnostic test were ordered, analyzed, and reviewed by me: Yes Radiological Interpretation: Reviewed by me - Risk of complications The pt has a mod risk of morbidity or mortality based on: Need for prescription drug management - Departure Departure Disposition: Home Clinical Impression: Postoperative nausea and vomiting, Dehydration Condition: Stable Critical Care Time: No Referrals: NIK YAN MD [Primary Care Provider] - Follow up/PCP as directed MONIQUE BODNS MD [ACTIVE STAFF] - Follow up/PCP as directed (Call for reevaluation point) Instructions: Severe Abdominal Pain, Adult (DC) Additional Instructions: Drink plenty of fluids. Take pain medication along with antinausea medications as needed. Follow-up with general surgeon for reevaluation. Return to ER for intractable vomiting, abdominal pain or if develop fever chills etc. Prescriptions: Prochlorperazine Maleate [Compazine] 5 mg PO Q6H PRN PRN 3 Days #12 tablet PRN Reason: Vomiting
[2024-05-28 09:17] VITALS: PULSE 58
[2024-05-28 09:46] LABS: Appearance Clear (Clear); Bacteria None Seen /HPF (None Seen); Bilirubin Negative (Negative); Blood Small (Negative); Epithelial Cells Rare /HPF (None Seen); Glucose, Urine Negative (Negative); Hyaline Casts NONE SEEN /LPF (0-2); Ketones 15 (Negative); Leukocyte Esterase Negative (Negative); Nitrite Negative (Negative); Ph 7.5 (4.6-8.0); Protein,Urine Dip Negative (Negative); Specific Gravity >=1.030 (1.005-1.030); Urobilinogen 0.2 mg/dL (0.2); WBC 0-2 /HPF (0-5)
[2024-05-28] MEDS ORDERED: Compazine 10 MG/2 ML ONE (09:51)
[2024-05-28] MEDS: Compazine 10 MG/2 ML IV ONE (09:53)
--- NOTE | 2024-05-28 10:01 | XRAY ---
Indication: Incisional pain. Status post laparoscopic cholecystectomy May 24, 2024. Multiple contiguous axial images obtained through the abdomen and pelvis using 80 cc Isovue 370 contrast. Comparison: May 23, 2024 Lung bases remain clear. Heart not enlarged. Interval cholecystectomy with tiny free fluid in gallbladder fossa and anterior liver. Also tiny perihepatic air bubbles. No walled off fluid collection. Abdominal wall demonstrates normal expected postsurgical changes related to laparoscopic cholecystectomy with tiny subcutaneous emphysema. No walled off fluid collection/abscess, or ventral hernia. Noncontrasted stomach and bowel loops appear nonobstructed. Remaining liver, pancreas, spleen, adrenal glands, kidneys, ureters, bladder, uterus, and aorta are normal in CT appearance and attenuation. No pathologic retroperitoneal lymphadenopathy. Impression: 1. Status post laparoscopic cholecystectomy with normal expected post surgical changes as detailed. No complications. 2. Remaining CT abdomen/pelvis with contrast exam is normal.
[2024-05-28 11:02] VITALS: RESP 18
[2024-05-28 12:00] VITALS: O2SAT 96
[2024-05-28 12:49] VITALS: BP 100/72
== END 2024-05-28 12:35 | disposition home or self-care (01) ==
LOC: ED 06:11
DX: K91.0 Vomiting following gastrointestinal surgery (principal); E86.0 Dehydration; R10.10 Upper abdominal pain, unspecified; R53.1 Weakness; Z79.899 Other long term (current) drug therapy
CPT/HCPCS: 36415; 74177; 80053; 81001; 82150; 83605; 83690; 85025; 96361; 96374; 96375; 99284; 99285; J2405; J3010

== ENCOUNTER 2024-05-28 18:01 | Observation (INO) | payer OTHER ==
[2024-05-28 18:15] VITALS: TEMP 97.2
[2024-05-28] MEDS ORDERED: Compazine 10 MG/2 ML ONE ×2 (18:28→20:02)
[2024-05-28] MEDS: Compazine 10 MG/2 ML IV ONE ×2 (18:29→20:03)
[2024-05-28] MEDS: Sodium Chloride 0.9% 1000 ML 1,000 ML IV SCH (18:29)
[2024-05-28 19:20] VITALS: RESP 18
[2024-05-28 19:52] LABS: ALBUMIN 4.7 g/dL (3.5-5.0); ANION GAP 22.4 MEQ/L (5-15); BILIRUBIN,TOTAL 1.2 mg/dL (0.2-1.3); Calcium 9.2 mg/dL (8.4-10.2); Creatinine 1 0.77 mg/dL (0.52-1.04); EST GLOMERULAR FILTRATION RATE 111.1 ML/MIN; Potassium 3.7 mmol/L (3.5-5.1); Total Protein 7.9 g/dL (6.3-8.2)
[2024-05-28 20:02] VITALS: BP 122/88; PULSE 57; O2SAT 98
--- NOTE | 2024-05-28 20:18 | ERPHSYRPT ---
- History of Present Illness Time Seen by Provider: 05/28/24 18:16 Historian: patient, family Exam Limitations: no limitations Patient Subjective Stated Complaint: vomiting Triage Nursing Assessment: Pt brought to the ER by her boyfriend, hypertensive, rates abdominal pain as 7/10, pulses normal, skin n/w/d, hyperventilating, released this morning from this ER for vomiting and did feel better, picked up rx of compazine and reports that it is not working on her now Physician History: 23 years old female laparoscopic cholecystectomy postop day 4 with nausea vomiting who was evaluated in this ER earlier today with negative workup except for some element of dehydration and a CT abdomen pelvis negative for any acute complication, was given symptomatic care, was discharged but returned back with repeated vomiting despite taking Compazine which helped this morning here in the ER. Patient continues to have some abdominal discomfort with no fever or chills. She is not able to hold anything down. Feels weak fatigued tired and dehydrated. Allergies/Adverse Reactions: bee venom protein (honey bee) Allergy (Verified 05/28/24 18:15) latex Allergy (Verified 05/28/24 18:15) Hx Tetanus, Diphtheria Vaccination/Date Given: Yes Hx Influenza Vaccination/Date Given: No Hx Pneumococcal Vaccination/Date Given: No Travel Risk - International Travel Have you traveled outside of the country in past 3 weeks: No - Emerging Infectious Disease Are you exhibiting symptoms associated with any current EIDs: Yes Symptoms: Vomitting - Review of Systems Constitutional: Fatigue, Weakness Eyes: No Symptoms Ears, Nose, & Throat: No Symptoms Respiratory: No Symptoms Cardiac: No Symptoms Abdominal/Gastrointestinal: Abdominal Pain, Nausea, Vomiting Genitourinary Symptoms: No Symptoms Musculoskeletal: Myalgias Skin: No Symptoms Neurological: No Symptoms Endocrine: No Symptoms Hematologic/Lymphatic: No Symptoms Immunological/Allergic: No Symptoms - Past Medical History Pertinent Past Medical History: Yes Neurological History: No Pertinent History ENT History: No Pertinent History Cardiac History: No Pertinent History Respiratory History: No Pertinent History Endocrine Medical History: No Pertinent History Musculoskeletal History: No Pertinent History GI Medical History: No Pertinent History History: No Pertinent History Psycho-Social History: Anxiety, Bipolar, Depression Female Reproductive Disorders: No Pertinent History Other Medical History: PTSD, Borderline personality disorder - Past Surgical History Past Surgical History: Yes Neuro Surgical History: No Pertinent History Cardiac: No Pertinent History Respiratory: No Pertinent History Gastrointestinal: No Pertinent History Genitourinary: No Pertinent History Musculoskeletal: No Pertinent History Female Surgical History: No Pertinent History Other Surgical History: wisdom teeth, LAP EARNESTINE ON 05/24/24 - Female History Hx Last Menstrual Period: LAST WEEK Hx Now: No - Social History Smoking Status: Never smoker Exposure to second hand smoke: No Drug Use: none - Social Determinants of Health Will the patient participate in the screening: Yes Do you worry about a steady place to live?: No Do you have any problems with any of the following?: No known problems In the past 12 months,have you had to go without utilities?: No Transportation Issues: No Has anyone in your support network made you feel unsafe?: No Have you or anyone in your house had to go w/o enough food: No - Nursing Vital Signs Nursing Vital Signs: Initial Vital Signs Temperature 97.2 F 05/28/24 18:09 Pulse Rate 63 05/28/24 18:09 Blood Pressure 144/96 05/28/24 18:09 O2 Sat by Pulse Oximetry 100 05/28/24 18:09 Pain Scale Pain Intensity 7 - Physical Exam General Appearance: no apparent distress, alert Eye Exam: PERRL/EOMI Ears, Nose, Throat Exam: normal ENT inspection Neck Exam: normal inspection, full range of motion Respiratory Exam: normal breath sounds, lungs clear Cardiovascular Exam: regular rate/rhythm, normal heart sounds Gastrointestinal/Abdomen Exam: soft, normal bowel sounds, tenderness (Mild upper abdominal tenderness. Incision clean dry and intact.) Extremity Exam: normal inspection, normal range of motion Neurologic Exam: alert, oriented x 3, cooperative, radiation control specialist II-XII nml as tested Skin Exam: normal color SpO2 Interpretation: normal SpO2: 98 O2 Delivery: Room Air Ordered Tests: Active Orders 24 hr Category Date Time Status IV Insertion STAT Care 05/28/24 18:16 Active CMP Stat Lab 05/28/24 19:20 Completed Medication Summary Generic Name Dose Route Start Last Admin Trade Name Freq PRN Reason Stop Dose Admin Sodium Chloride 1,000 mls @ 125 mls/hr 05/28/24 18:30 05/28/24 18:29 Sodium Chloride 0.9% 1000 Ml IV 06/27/24 18:29 125 mls/hr .Q8H ROGE Administration Discontinued Medications Generic Name Dose Route Start Last Admin Trade Name Freq PRN Reason Stop Dose Admin Prochlorperazine Edisylate 5 mg 05/28/24 18:16 05/28/24 18:29 Prochlorperazine Edisylate 10 Mg/2 Ml Vial IV 05/28/24 18:17 5 mg STAT ONE Administration Prochlorperazine Edisylate Confirm 05/28/24 18:28 Prochlorperazine Edisylate 10 Mg/2 Ml Vial Administered 05/28/24 18:29 Dose 10 mg .ROUTE .STK-[employer] ONE Prochlorperazine Edisylate 5 mg 05/28/24 20:00 05/28/24 20:03 Prochlorperazine Edisylate 10 Mg/2 Ml Vial IV 05/28/24 20:01 5 mg STAT ONE Administration Prochlorperazine Edisylate Confirm 05/28/24 20:02 Prochlorperazine Edisylate 10 Mg/2 Ml Vial Administered 05/28/24 20:03 Dose 10 mg .ROUTE .[employer] ONE Lab/Rad Data: Laboratory Result Diagrams 05/28/24 19:20 Laboratory Results 05/28/24 Range/Units 19:20 Sodium 143 (135-145) mmol/L Potassium 3.7 (3.5-5.1) mmol/L Chloride 106 (98-107) mmol/L Carbon Dioxide 19 L (22-30) mmol/L Anion Gap 22.4 H (5-15) MEQ/L BUN 7 (7-17) mg/dL Creatinine 0.77 (0.52-1.04) mg/dL Estimated GFR 111.1 ML/MIN Glucose 101 (74-106) mg/dL Calcium 9.2 (8.4-10.2) mg/dL Total Bilirubin 1.20 (0.2-1.3) mg/dL AST 54 H (14-36) U/L ALT 67 H (0-35) U/L Alkaline Phosphatase 72 (38-126) U/L Serum Total Protein 7.9 (6.3-8.2) g/dL Albumin 4.7 (3.5-5.0) g/dL - Progress Progress: improved Progress Note: 05/28/24 20:13 23-year-old laparoscopic cholecystectomy 4 days ago with intractable nausea vomiting. Patient had a thorough workup done this morning which was essentially unremarkable including CT abdomen pelvis except for some element of dehydration. Patient is given fluids and Compazine again on presentation in the ER. Repeat chemistries showed mild worsening of anion gap to 22 which was 20 earlier this morning. I have discussed with Dr. Vidales, recommended admission to hospitalist service as patient does not have any surgical issue currently. I have discussed with Dr. Hall, reviewed history, workup and general surgery recommendation, agreed with admission. I have shared the results of workup with patient and family and plan of admissi on which they understand and agree. Do not think patient needs all repeat workup. Complexity of problems addressed: Moderate to high acuity Complexity of data reviewed and analyzed: Moderate Risk of complication/morbidity or mortality of patient management: Moderate risk. Discussed with Dr.: Precious, Other (Dr. Hall hospitalist) Counseled pt/family regarding: lab results, diagnosis, need for follow-up Medical Desision Making - Independent Historian Additional History obtained from: Spouse - Discussion of managment Care discussed with:: specialist (Dr. Vidales general surgeon, Dr. Hall hospitalist) Reviewed:: Test results Agreed on:: Treatment plan, place in obs Will see patient: in hospital - Diagnostic Testing Diagnostic test were ordered, analyzed, and reviewed by me: Yes - Risk of complications The pt has a mod risk of morbidity or mortality based on: Need for prescription drug management The pt has a high risk of morbidity or mortality based on: Decision regarding hospitilization or escalation of hosp level of care - Departure Departure Disposition: Observation Clinical Impression: Intractable nausea and vomiting, Dehydration Condition: Stable Critical Care Time: No Referrals: NIK YAN MD [Primary Care Provider] - Follow up/PCP as directed
--- NOTE | 2024-05-28 20:53 | PCM.HP ---
History of Present Illness - Chief Complaint Chief Complaint: nausea Date: 05/28/24 History of Present Illness: 23-year-old with a history of bipolar disorder and recent cholecystectomy for acute cholecystitis, who presents with persistent postoperative nausea and vomit ing. Patient was admitted over the weekend and had a laparoscopic cholecystectomy performed by Dr. Delaney on 05/24. Per patient, she is been having intractable nausea and vomiting every surgery itself, but initial notes on postop day 1 showed that patient was doing well and she was discharged home that day. Patient notes that she has had persistent nausea and vomiting since that time that has not been controlled by her Zofran, causing nonbloody, nonbilious vomiting, about 5-6 times per day. Associated with periumbilical and back pressure-like and burning pain, worse with vomiting. No change with eating or bowel movements. No fevers, and no drainage or discharge from her incision sites, which she says are all healing well. She notes some dizziness and lightheaded on standing, as well as dry mouth, with poor p.o. intake, stating she has been unable to keep anything down since the surgery itself. She was in the ER earlier today, where her symptoms were initially controlled with Compazine and she was able to tolerate p.o. However, she returns to the ER again today with recurrent vomiting that has not been relieved by the home Compazine. Surgery Dr. Bella requested patient be given IV fluids overnight, and if still having nausea in the morning, will see the patient in the afternoon. - Review of Systems All Other Systems: Reviewed and Negative Medications & Allergies Home Medications: Home Medication List Hydrocodone/Acetaminophen [Hydrocodone-Acetamin 5-325 mg] 1 tab PO Q6HPRN PRN 7 Days #20 tablet MDD 4 05/24/24 [Rx Confirmed 05/28/24] Amox Tr/Potass Clav. 875 mg [Augmentin 875-125 Tablet] 875 mg PO TID 7 Days #21 tablet 05/25/24 [Rx Confirmed 05/28/24] Ondansetron ODT 4 MG [Zofran Odt 4 mg] 4 mg PO Q6H PRN PRN #10 tablet 05/25/24 [Rx Confirmed 05/28/24] Prochlorperazine Maleate [Compazine] 5 mg PO Q6H PRN PRN 3 Days #12 tablet 05/28/24 [Rx Confirmed 05/28/24] Allergies/Adverse Reactions: Allergies Allergy/AdvReac Type Severity Reaction Status Date / Time bee venom protein (honey bee) Allergy Verified 05/28/24 18:15 latex Allergy Verified 05/28/24 18:15 - Past Medical History Past Medical History: Yes Neurological History: No Pertinent History ENT History: No Pertinent History Cardiac History: No Pertinent History Respiratory History: No Pertinent History Endocrine Medical History: No Pertinent History Musculoskelatal History: No Pertinent History GI Medical History: No Pertinent History History: No Pertinent History Pyscho-Social History: Anxiety, Bipolar, Depression Reproductive Disorders: No Pertinent History Comment: PTSD, Borderline personality disorder - Female History Hx Last Menstrual Period: LAST WEEK Are you now?: No - Past Surgical History Past Surgical History: Yes Neuro Surgical History: No Pertinent History Cardiac History: No Pertinent History Respiratory Surgery: No Pertinent History GI Surgical History: No Pertinent History Genitourinary Surgical Hx: No Pertinent History Musculskeletal Surgical Hx: No Pertinent History Female Surgical History: No Pertinent History Other Surgical History: wisdom teeth, LAP EARNESTINE ON 05/24/24 Significant Family History: no pertinent family hx - Social History Smoking Status: Never smoker Exposure to second hand smoke: No Alcohol: None Drug Use: none - Social Determinants of Health Will the patient participate in the screening: Yes Do you worry about a steady place to live?: No Do you have any problems with any of the following?: No known problems In the past 12 months,have you had to go without utilities?: No Have you or anyone in your house had to go without enough: No Transportation Issues: No Has anyone in your support network made you feel unsafe?: No Does the patient want assistance with any of the above?: No - Physical Exam Vital Signs: Vital Signs - 24 hr Temp Pulse Resp BP BP Pulse Ox 05/28/24 20:27 98 05/28/24 20:00 57 L 18 122/88 98 05/28/24 19:30 115/61 98 05/28/24 19:00 148 H 18 116/68 97 05/28/24 18:31 109/74 100 05/28/24 18:12 144/96 98 05/28/24 18:09 97.2 F 63 144/96 100 Physical Exam GEN: Sitting up in bed, in moderate distress from her back pain and nausea, causing significant anxiety. HENT: Normocephalic, atraumatic. Dry mucous membranes. EYES: Normal inspection, anicteric sclera, extraocular movements intact. NECK: Supple, full range of motion CV: Regular rate and rhythm, no murmurs, no gallops. No JVD or edema. PULM: Clear to auscultation bilaterally, no work of breathing. On room air. ABD: Nondistended, nontender on exam. Laparoscopic incision sites with Steri- Strips still in place, no erythema, no drainage, no tenderness. MSK: No joint effusions, full range of motion SKIN: No rashes, normal color. NEURO: Face symmetric, no focal motor or sensory deficits. PSYCH: Alert, oriented x 3, anxious affect Results - Labs Lab/Micro Results: Lab Results-Last 24 Hours 05/28/24 Range/Units 19:20 Sodium 143 (135-145) mmol/L Potassium 3.7 (3.5-5.1) mmol/L Chloride 106 (98-107) mmol/L Carbon Dioxide 19 L (22-30) mmol/L Anion Gap 22.4 H (5-15) MEQ/L BUN 7 (7-17) mg/dL Creatinine 0.77 (0.52-1.04) mg/dL Estimated GFR 111.1 ML/MIN Glucose 101 (74-106) mg/dL Calcium 9.2 (8.4-10.2) mg/dL Total Bilirubin 1.20 (0.2-1.3) mg/dL AST 54 H (14-36) U/L ALT 67 H (0-35) U/L Alkaline Phosphatase 72 (38-126) U/L Serum Total Protein 7.9 (6.3-8.2) g/dL Albumin 4.7 (3.5-5.0) g/dL Labs reviewed from visit from ER earlier today as well as this evening. CBC normal except perhaps for some hemoconcentration (hemoglobin 15.9, albumin 4.7). Mild non-gap acidosis (when corrected for albumin), with CO2 19, gap 18. Normal creatinine. Lactate initially 2.5, but then 0.8 on repeat after IV fluids. UA unremarkable. - Radiology Impressions Radiology Exams & Impressions: CT abdomen/pelvis status post laparoscopic cholecystectomy with normal expected postsurgical changes. No complications. Assessment/Plan (1) Intractable nausea and vomiting Current Visit: Yes Status: Acute Assessment & Plan: 23-year-old woman with a history of bipolar disorder, who presents with intractable nausea and vomiting after recent gallbladder surgery. ## Postoperative nausea CT without any pertinent findings. Lab work suggests some hemoconcentration as well as perhaps mild acidosis, all suggesting some dehydration. Continue NS at 125 mL/h PRN Compazine, as this appeared to help earlier Placed on clear liquid diet Surgery consulted, to see patient tomorrow if not improving CODE STATUS: Full code Diet: Clear liquids Prophylaxis: Short stay, low risk, encourage ambulation Dispo: Place in observation, expect discharge to home once nausea has improved Entirety of encounter took place via live audio/video telemedicine device, with remote physician and patient in hospital, with the assistance of bedside nurse. Code(s): R11.2 - NAUSEA WITH VOMITING, UNSPECIFIED Telemedicine Encounter - Telemedicine Encounter Telemedicine Encounter: "The entirety of this encounter was performed via Telemedicine" This visit was performed using real-time audio and video connection between my location and thepatients locationwith the assistance of a surrogateat the patients location. Written or verbal consent was obtained from the patient/guardian to perform this visit using[employer] technology. Any patient questions regarding the telemedicine interaction were answered.
[2024-05-28] MEDS ORDERED: MORPHINE SULFATE 2 MG INJ IV PRN (21:07)
[2024-05-28] MEDS ORDERED: Compazine 10 MG/2 ML IV PRN (21:07)
[2024-05-28] MEDS ORDERED: NORCO 5/325 MG PO PRN (21:07)
[2024-05-28] MEDS ORDERED: TYLENOL 325 MG PO PRN (21:07)
== END 2024-05-28 22:35 | disposition left against medical advice (07) ==
LOC: ED 18:01 → MED SURG 20:59
PROVIDERS: ADMIT Internal Medicine; ATTEND Internal Medicine
DX: R11.2 Nausea with vomiting, unspecified (principal); E86.0 Dehydration
CPT/HCPCS: 36415; 80053; 96374; 99285; G0378; 99284